=== PATIENT | male | born 1930 | race Caucasian/White ===

== ENCOUNTER 2016-10-09 03:01 | Inpatient (IN) | payer MEDICARE, BC ==
[2016-10-09] MEDS ORDERED: ASPIRIN 81 MG CHEW PO STA (03:16)
[2016-10-09] MEDS ORDERED: NITROGLYCERIN SL TABS 0.4 MG TAB SUBLINGUAL STA ×3 (03:16)
--- NOTE | 2016-10-09 03:17 | ED ---
General Adult HPI - General Chief complaint: Chest Pain Stated complaint: chest pains Time Seen by Provider: 10/09/16 03:13 Source: patient, family, RN notes reviewed Mode of arrival: ambulatory Limitations: no limitations - History of Present Illness Initial comments: Patient is a pleasant 86-year-old male presenting to the emergency department complaining of chest discomfort. Onset of symptoms was just an hour ago. Discomfort is severe. Discomfort feels like an ache. No radiation. Patient is unclear whether or not he short of breath. No nausea or sweating. Patient has had similar symptoms previously associated with cardiac problems. Patient does have a history of CABG. - Related Data Home Medications Medication Instructions Recorded Confirmed Nitroglycerin Sl Tabs [Nitrostat] 0.4 mg SL DIRECTED PRN 01/26/14 10/09/16 Ranitidine HCl [Zantac] 150 mg PO DAILY 01/26/14 10/09/16 Warfarin [Coumadin] 5 mg PO PC-SUPPER 01/26/14 10/09/16 ALPRAZolam [Xanax] 0.25 mg PO DIRECTED PRN 05/12/16 10/09/16 Aspirin [Adult Low Dose Aspirin EC] 81 mg PO DAILY 05/12/16 10/09/16 Escitalopram Oxalate [Lexapro] 10 mg PO DAILY 05/12/16 10/09/16 Isosorbide Mononitrate [Imdur] 120 mg PO PC-SUPPER 05/12/16 10/09/16 Losartan [Cozaar] 25 mg PO DAILY 05/12/16 10/09/16 Ranolazine [Ranexa] 1,000 mg PO BID 05/12/16 10/09/16 Previous Rx's Medication Instructions Recorded Atorvastatin [Lipitor] 40 mg PO HS #30 tab 10/14/14 Metoprolol Tartrate [Lopressor] 50 mg PO BID #60 tab 10/14/14 Allergies Allergy/AdvReac Type Severity Reaction Status Date / Time No Known Allergies Allergy Verified 10/09/16 03:05 Review of Systems ROS Statement: Those systems with pertinent positive or pertinent negative responses have been documented in the HPI. ROS Other: All systems not noted in ROS Statement are negative. Constitutional: Denies: fever Eyes: Denies: eye pain ENT: Denies: ear pain Respiratory: Denies: cough Cardiovascular: Reports: chest pain Endocrine: Denies: fatigue Gastrointestinal: Denies: abdominal pain Genitourinary: Denies: dysuria Musculoskeletal: Denies: back pain Skin: Denies: rash Neurological: Denies: weakness Past Medical History Past Medical History: Coronary Artery Disease (CAD), Chest Pain / Angina, Eye Disorder, Hyperlipidemia, Hypertension, Myocardial Infarction (NE) Additional Past Medical History / Comment(s): Macular Degeneration, rectal bleeding, Last Myocardial Infarction Date:: 1992 History of Any Multi-Drug Resistant Organisms: None Reported Past Surgical History: Cholecystectomy, Coronary Bypass/CABG, Heart Catheterization With Stent, Hernia Repair Additional Past Surgical History / Comment(s): kevin inguinal hernia, CABG 1992, 2 cardiac stents Past Anesthesia/Blood Transfusion Reactions: No Reported Reaction Date of Last Stent Placement:: 2003 Past Psychological History: Anxiety, Depression Smoking Status: Former smoker Past Alcohol Use History: Occasional Additional Past Alcohol Use History / Comment(s): quit smoking 40 yrs ago, smoked for 25 yrs- 1 PPD Past Drug Use History: None Reported - Past Family History Mother Family Medical History: No Reported History Additional Family Medical History / Comment(s): Passed at 93 Father Family Medical History: Myocardial Infarction ([place]) General Exam Limitations: no limitations General appearance: alert, in distress (Does appear uncomfortable) Head exam: Present: atraumatic Eye exam: Present: normal appearance, PERRL ENT exam: Present: normal oropharynx Neck exam: Present: normal inspection Respiratory exam: Present: normal lung sounds bilaterally. Absent: chest wall tenderness Cardiovascular Exam: Present: regular rate, normal rhythm Expanded Peripheral pulses: 2+: Radial (R), Radial (L), Dorsalis Pedis (R), Dorsalis Pedis (L) GI/Abdominal exam: Present: soft. Absent: tenderness Extremities exam: Present: normal inspection. Absent: pedal edema, calf tenderness Neurological exam: Present: alert Psychiatric exam: Present: normal affect, normal mood Skin exam: Absent: rash Course Vital Signs 10/09/16 10/09/16 10/09/16 03:03 03:13 03:29 Temperature 97.2 F L 97.2 F L Pulse Rate 92 93 78 Respiratory 20 16 18 Rate Blood Pressure 177/91 183/96 130/70 O2 Sat by Pulse 98 100 99 Oximetry 10/09/16 03:38 Temperature Pulse Rate 90 Respiratory 18 Rate Blood Pressure 109/65 O2 Sat by Pulse 96 Oximetry - Reevaluation(s) Reevaluation #1: 10/09/16 03:21 Case was discussed with cardiology, Dr. jarrett and EKG is being sent 10/09/16 03:45 Case again discussed with Dr. jarrett who is also concerned regarding disease. He does not feel patient needs ST elevation criteria. He recommends brain Dilaudid and heparin drip and vitamin K 5 mg subcu and will see in the morning. 10/09/16 03:45 10/09/16 04:04 Patient was reevaluated and discomfort has significant improved. Patient is resting comfortably. Patient rates discomfort now is 5/10. Patient and family are updated on results and plan. Dr. Jarrett was updated on further labs. 10/09/16 04:04 Case discussed in detail with Dr. Ashton, who will admit for hospital call. EKG Findings - EKG Comments: EKG Findings:: Sinus rhythm and 93. First-degree AV block. DE 344. QRS 144. QT 412. QTC 512. Left axis. Right bundle branch block. Left anterior fascicular block. Significant ST depression leads V1 through V6. ST elevation in lead aVR. Medical Decision Making - Lab Data Result diagrams: 10/09/16 03:13 10/09/16 03:13 Lab Results 10/09/16 10/09/16 10/09/16 Range/Units 03:13 03:13 03:13 WBC 5.5 (3.8-10.6) k/uL RBC 3.74 L (4.30-5.90) m/uL Hgb 12.6 L (13.0-17.5) gm/dL Hct 37.7 L (39.0-53.0) % MCV 100.8 H (80.0-100.0) fL MCH 33.7 (25.0-35.0) pg MCHC 33.4 (31.0-37.0) g/dL RDW 14.0 (11.5-15.5) % Plt Count 134 L (150-450) k/uL PT (9.0-12.0) sec INR (<1.1) APTT (22.0-30.0) sec Sodium 140 (137-145) mmol/L Potassium 4.1 (3.5-5.1) mmol/L Chloride 102 (98-107) mmol/L Carbon Dioxide 23 (22-30) mmol/L Anion Gap 15 mmol/L BUN 12 (9-20) mg/dL Creatinine 0.88 (0.66-1.25) mg/dL Est GFR (MDRD) Af Amer >60 (>60 ml/min/1.73 sqM) Est GFR (MDRD) Non-Af >60 (>60 ml/min/1.73 sqM) Glucose 124 H (74-99) mg/dL Calcium 9.1 (8.4-10.2) mg/dL Magnesium 1.8 (1.6-2.3) mg/dL Total Bilirubin 0.7 (0.2-1.3) mg/dL AST 31 (17-59) U/L ALT 35 (21-72) U/L Alkaline Phosphatase 108 (38-126) U/L Total Creatine Kinase 97 (55-170) U/L CK-MB (CK-2) 1.4 (0.0-2.4) ng/mL CK-MB (CK-2) Rel Index 1.4 Troponin I 0.064 H* (0.000-0.034) ng/mL Total Protein 7.8 (6.3-8.2) g/dL Albumin 4.2 (3.5-5.0) g/dL 10/09/16 Range/Units 03:13 WBC (3.8-10.6) k/uL RBC (4.30-5.90) m/uL Hgb (13.0-17.5) gm/dL Hct (39.0-53.0) % MCV (80.0-100.0) fL MCH (25.0-35.0) pg MCHC (31.0-37.0) g/dL RDW (11.5-15.5) % Plt Count (150-450) k/uL PT 24.8 H (9.0-12.0) sec INR 2.6 (<1.1) APTT 27.9 (22.0-30.0) sec Sodium (137-145) mmol/L Potassium (3.5-5.1) mmol/L Chloride (98-107) mmol/L Carbon Dioxide (22-30) mmol/L Anion Gap mmol/L BUN (9-20) mg/dL Creatinine (0.66-1.25) mg/dL Est GFR (MDRD) Af Amer (>60 ml/min/1.73 sqM) Est GFR (MDRD) Non-Af (>60 ml/min/1.73 sqM) Glucose (74-99) mg/dL Calcium (8.4-10.2) mg/dL Magnesium (1.6-2.3) mg/dL Total Bilirubin (0.2-1.3) mg/dL AST (17-59) U/L ALT (21-72) U/L Alkaline Phosphatase (38-126) U/L Total Creatine Kinase (55-170) U/L CK-MB (CK-2) (0.0-2.4) ng/mL CK-MB (CK-2) Rel Index Troponin I (0.000-0.034) ng/mL Total Protein (6.3-8.2) g/dL Albumin (3.5-5.0) g/dL Critical Care Time Critical Care Time: Yes Total Critical Care Time: 34 Disposition Clinical Impression: NSTEMI (non-ST elevated myocardial infarction) Disposition: ADMITTED IP TO THIS [facility] Condition: Serious
[2016-10-09 03:31] LABS: Aty Lym Flag Marked; CH 33.9; CHCM 33.8; HCT 37.7 % (39.0-53.0); HDW 2.83; HGB 12.6 gm/dL (13.0-17.5); MCH 33.7 pg (25.0-35.0); MCHC 33.4 g/dL (31.0-37.0); MCV 100.8 fL (80.0-100.0); MPO Flag Slight; Macrocytosis Slight; Mean Platelet Volume 7.5; RBC 3.74 m/uL (4.30-5.90); WBC 5.5 k/uL (3.8-10.6); WBC (Perox) 5.29
[2016-10-09 03:35] LABS: INR 2.6 (<1.1); Partial Thromboplastin Time 27.9 sec (22.0-30.0); Prothrombin Time 24.8 sec (9.0-12.0)
[2016-10-09 03:39] LABS: ALT 35 U/L (21-72); AST 31 U/L (17-59); Alkaline Phosphatase 108 U/L (38-126); Anion Gap 15 mmol/L; Blood Urea Nitrogen 12 mg/dL (9-20); Calcium 9.1 mg/dL (8.4-10.2); Carbon Dioxide 23 mmol/L (22-30); Chloride 102 mmol/L (98-107); Glucose 124 mg/dL (74-99); Magnesium 1.8 mg/dL (1.6-2.3); Non-African American GFR(MDRD) >60 (>60 ml/min/1.73 sqM); Potassium 4.1 mmol/L (3.5-5.1); Sodium 140 mmol/L (137-145); Total Bilirubin 0.7 mg/dL (0.2-1.3); Total Protein 7.8 g/dL (6.3-8.2)
[2016-10-09] MEDS ORDERED: HEPARIN SODIUM,PORCINE 5,000 UNIT/ML 1 ML VIAL IV PRN (03:44)
[2016-10-09] MEDS ORDERED: HYDROmorphone 1 MG/ML 1 ML SYRINGE IVP STA (03:44)
--- NOTE | 2016-10-09 03:44 | XR ---
EXAMINATION TYPE: XR chest 1V portable DATE OF EXAM: 10/09/2016 3:28 AM COMPARISON: 10/10/2014 HISTORY: Chest pain, severe substernal chest pain history of CABG PR CAD. TECHNIQUE: Single frontal view of the chest is obtained. Portable upright study. FINDINGS: There is elevated left hemidiaphragm of chronic nature with eventration changes. Mild right basilar lung infiltrates and atelectasis is suggested. Mild atelectasis is also noted in t he left lung base. There is mild cardiomegaly. Postsurgical changes of sternotomy are present. The osseous structures are intact. IMPRESSION: 1. Mild right basilar lung infiltrates and atelectasis. 2. Mild atelectasis in the left lung base. 3. Postsurgical changes of sternotomy.
[2016-10-09] MEDS ORDERED: HEPARIN SODIUM,PORCINE/D5W PMX 25,000 UNIT in DEXTROSE/WATER 1 500ML.BAG IV SCH (03:45)
[2016-10-09] MEDS ORDERED: PHYTONADIONE 10 MG/ML 1 ML AMP MISCELLANE STA (03:57)
[2016-10-09 04:01] LABS: Creatine Kinase MB 1.4 ng/mL (0.0-2.4)
[2016-10-09 04:02] LABS: Troponin I 0.064 ng/mL (0.000-0.034)
[2016-10-09] MEDS ORDERED: PHYTONADIONE 2 MG in SODIUM CHLORIDE 0.9% 50 ML IVPB STA (04:08)
[2016-10-09 04:13] LABS: Add Differential Manual Differential
[2016-10-09 04:15] LABS: Nucleated Red Blood Cells 0 /100 WBC (0-0)
[2016-10-09 04:16] LABS: Manual Review Performed; Total Cells Counted 100
[2016-10-09 05:33] VITALS: BMI 27.6
[2016-10-09] MEDS: NITROGLYCERIN OINT 1 INCH/GM PACKET TOPICAL SCH ×3 (06:23→18:22)
[2016-10-09] MEDS: NITROGLYCERIN SL TABS 0.4 MG TAB SUBLINGUAL PRN ×3 (08:10→08:21)
[2016-10-09 09:16] LABS: Partial Thromboplastin Time 38.1 sec (22.0-30.0); Prothrombin Time 19.5 sec (9.0-12.0)
[2016-10-09] MEDS: FAMOTIDINE 20 MG TAB PO SCH (09:28)
[2016-10-09] MEDS: RANOLAZINE 500 MG TAB.ER.12H PO SCH ×2 (09:28→21:51)
[2016-10-09] MEDS: LOSARTAN 25 MG TAB PO SCH (09:28)
[2016-10-09] MEDS: METOPROLOL TARTRATE 50 MG TAB PO SCH ×2 (09:28→21:50)
[2016-10-09] MEDS ORDERED: SODIUM CHLORIDE 0.9% 1,000 ML IV SCH (09:30)
[2016-10-09] MEDS ORDERED: LIDOCAINE 2% INJ 20 MG/ML (20 ML MDV) ONE (09:34)
[2016-10-09] MEDS ORDERED: MIDAZOLAM 2 MG/2 ML VIAL ONE (09:34)
[2016-10-09] MEDS ORDERED: ASPIRIN 325 MG TAB ONE (09:49)
[2016-10-09 09:54] LABS: Creatine Kinase MB 7.4 ng/mL (0.0-2.4); Troponin I 1.21 ng/mL (0.000-0.034)
--- NOTE | 2016-10-09 09:55 | CONS ---
DATE OF CONSULTATION: Mr. Lebron is an 86-year-old gentleman who is seen for the cardiac evaluation. The patient presented to the emergency room early this morning with moderate to severe chest discomfort. Patient gives the history that he was at a alliance party last night and he had a couple of beers and shots and then he woke up in the middle of the night with chest discomfort which was diffuse across the chest, moderate to severe, did not have any significant nausea or vomiting or sweating. Patient's EKG showed diffuse ST segment depression in the anterolateral leads with some ST elevation in aVR. This patient has a complex coronary artery disease with a prior history of coronary artery bypass surgery several years ago. Subsequently, patient had multiple stents. Patient had a stent to the left main. The last cardiac catheterization was done here in 2014. At that time patient underwent stent to the diagonal branch. The graft to the circumflex coronary artery had some disease, but was advised medical treatment. The patient had a second opinion at [facility], had a repeat cardiac catheterization done 6 to 8 months ago and was advised medical treatment. The patient had been doing fairly well with only occasional angina with activities. The patient is otherwise physically and functionally independent. Patient has been on Coumadin because of possible atrial fibrillation in the past. Patient's home medications include Zantac, Coumadin, Cozaar, Ranexa, Lipitor and Lopressor. Past medical history includes history of coronary artery bypass surgery, hypertension, hyperlipidemia, myocardial infarction, multiple stents, cholecystectomy hernia repair, macular degeneration, history of rectal bleeding, bilateral inguinal hernia repair. Smoking status: Patient is a former smoker. Physical examination at present reveals an 86-year-old gentleman who at present is having mild chest discomfort. Blood pressure is 130/70 mmHg. HEENT examination is negative. Neck is supple. There is no increase in jugular venous pressure. Both the carotid pulses are felt. There is no bruit. Chest is symmetrical. HEART: The PMI is not felt. First and second heart sounds are normal. Lungs are clinically clear to auscultation and percussion. Abdomen is soft. Liver and spleen are not enlarged. Bowel sounds are heard. EXTREMITIES: Peripheral pulsations are not well felt. Both femoral pulses are felt. EKG shows diffuse right bundle branch block with diffuse ST segment depression in the anterolateral leads. The patient's hemoglobin is 12.6. INR was 2.6. Creatinine is 0.88. Initial troponin is 0.06. FINAL IMPRESSION: This patient has presented with non-Q-wave myocardial infarction with diffuse ST segment depression. Patient has a history of coronary artery disease with a prior history of coronary artery surgery and multiple bypass stents. Patient again had recurrence of the pain after admission in the hospital. In view of that, the patient is considered a very high risk. I discussed in length in detail with the patient and the friend who is present in the room, explained the benefits and risks. He wants to proceed with it. The risk of bleeding was explained to the patient. Patient has received vitamin K. We will recheck the INR, hydrate the patient and take him to the cardiac labor/excavator for whether any kind of intervention can be done or not.
[2016-10-09] MEDS ORDERED: ASPIRIN 325 MG TAB PO ONE (09:56)
[2016-10-09] MEDS ORDERED: fentaNYL (PF) 50 MCG/ML 2 ML AMP ONE (10:21)
[2016-10-09] MEDS ORDERED: MIDAZOLAM 2 MG/2 ML VIAL IVP ONE (10:24)
[2016-10-09] MEDS ORDERED: IV FLUID CONTINUATION 350 ML IV ONE (10:24)
[2016-10-09] MEDS ORDERED: fentaNYL (PF) 50 MCG/ML 2 ML AMP IV ONE (10:24)
[2016-10-09] MEDS ORDERED: LIDOCAINE 2% INJ 20 MG/ML SQ ONE (10:25)
[2016-10-09] MEDS ORDERED: IOHEXOL 350 MG/ML 100 ML BOTTLE INJ ONE (10:56)
[2016-10-09] MEDS ORDERED: RX INFO: IV CONTRAST WAS GIVEN 1 EACH MISC MISCELLANE PRN (11:01)
[2016-10-09] MEDS ORDERED: CLOPIDOGREL 75 MG TAB PO STA (11:05)
[2016-10-09] MEDS: SODIUM CHLORIDE 0.9% 1,000 ML IV SCH (11:43)
[2016-10-09] MEDS ORDERED: Magnesium Replacement Protocol 1 EACH MISC MISCELLANE PRN (11:48)
[2016-10-09] MEDS: MAGNESIUM SULFATE-D5W PMX 1 GM in DEXTROSE/WATER 1 100ML.BAG IVPB SCH ×2 (12:28→13:43)
--- NOTE | 2016-10-09 12:43 | CC ---
DATE OF SERVICE: Mr. Lebron is an 86-year-old gentleman who was admitted to the hospital with severe chest pain. Patient had a diffuse ST segment depression. Troponin was elevated in 0.06 and 1.2. In view of the patient's pain and abnormal EKG, patient was advised cardiac catheterization after explaining all the risks and benefits. This patient has a prior history of a stent to the left main. He underwent angioplasty and stenting of the second diagonal branch in 2014. The graft to the right coronary artery was occluded. LAD was 100%, OLMOS graft to the LAD was patent. PROCEDURE: The right groin was prepped and draped in the usual manner and the skin was infiltrated with 2% Xylocaine. The right femoral artery was entered using Seldinger technique and #6 Danish sheath was placed in. Selective coronary angiography was then performed in multiple projections. Selective injection of the vein graft to the RCA and circumflex was made. The OLMOS was injected sub-selectively because of the tortuous subclavian artery. HEMODYNAMICS: Left ventricular end-diastolic pressure is 24 mmHg prior to angiography. No gradient is noted across the aortic valve. SELECTIVE CORONARY ANGIOGRAPHY: Left main coronary artery is patent and a stent is patent. The LAD is totally occluded in its proximal portion. The diagonal branch, which was angioplastied is totally occluded with very slow sluggish flow noted antegrade. The circumflex coronary artery is totally occluded. The subselective injection of the OLMOS graft showed the OLMOS is patent. Right coronary artery is totally occluded. Saphenous vein graft to the right coronary artery is occluded. Saphenous vein graft to the circumflex coronary artery is diffusely diseased, is old, and distally at the site of the anastomosis. There 70% stenosis beyond the anastomosis. The obtuse marginal branch is a very small caliber blood vessel. RECOMMENDATIONS: The cardiac cath findings were reviewed with Dr. Odilia Horn. In view of the above findings, we would recommend to continue the patient on maximum medical therapy. Overall patient's prognosis is guarded.
[2016-10-09 16:44] LABS: Creatine Kinase MB 7.9 ng/mL (0.0-2.4); Troponin I 2.08 ng/mL (0.000-0.034)
[2016-10-09] MEDS ORDERED: ISOSORBIDE MONONITRATE ER 60 MG TAB.ER.24H PO SCH (18:30)
[2016-10-09] MEDS: ATORVASTATIN 40 MG TAB PO SCH (21:50)
[2016-10-09] MEDS: ALPRAZolam 0.25 MG TAB PO PRN (22:33)
[2016-10-10] MEDS: NITROGLYCERIN OINT 1 INCH/GM PACKET TOPICAL SCH ×2 (00:14→06:15)
[2016-10-10] MEDS: SODIUM CHLORIDE 0.9% 1,000 ML IV SCH ×2 (03:14→15:50)
[2016-10-10 04:50] LABS: Aty Lym Flag Marked; CH 33.7; CHCM 32.4; HCT 36.7 % (39.0-53.0); HDW 2.64; HGB 11.8 gm/dL (13.0-17.5); MCH 33.4 pg (25.0-35.0); MCV 104.4 fL (80.0-100.0); Macrocytosis Slight; Mean Platelet Volume 7.5; RBC 3.52 m/uL (4.30-5.90); RDW 14.1 % (11.5-15.5); WBC 6.7 k/uL (3.8-10.6); WBC (Perox) 6.76
[2016-10-10 05:00] LABS: ALT 34 U/L (21-72); AST 34 U/L (17-59); Alkaline Phosphatase 80 U/L (38-126); Anion Gap 9 mmol/L; Blood Urea Nitrogen 14 mg/dL (9-20); Calcium 8.2 mg/dL (8.4-10.2); Carbon Dioxide 21 mmol/L (22-30); Chloride 107 mmol/L (98-107); Cholesterol 106 mg/dL (<200); Glucose 132 mg/dL (74-99); HDL Cholesterol 57 mg/dL (40-60); Non-African American GFR(MDRD) >60 (>60 ml/min/1.73 sqM); Phosphorous 2.8 mg/dL (2.5-4.5); Potassium 4.4 mmol/L (3.5-5.1); Sodium 137 mmol/L (137-145); Total Bilirubin 0.8 mg/dL (0.2-1.3); Triglycerides 82 mg/dL (<150)
[2016-10-10 05:08] LABS: INR 1.3 (<1.1); Prothrombin Time 12.4 sec (9.0-12.0)
[2016-10-10 05:17] LABS: Add Differential Manual Differential
[2016-10-10 05:19] LABS: Nucleated Red Blood Cells 0 /100 WBC (0-0); Total Cells Counted 100
[2016-10-10 05:20] LABS: Manual Review Performed
--- NOTE | 2016-10-10 08:01 | HP ---
DATE OF ADMISSION: Chief complaint is chest pain. HISTORY OF ILLNESS: Mr. Lebron is an 86-year-old male with a known history of coronary artery disease and stent placement and history of ID and coronary artery bypass graft in 1992, came to the ER with complaints of chest pain, started this morning at around 12:30 a.m. Patient has midsternal chest pain, pain across the anterior chest wall, no radiation of the pain and associated with mild short of breath. No associated nausea or vomiting, denied any diaphoresis. Patient came to the hospital for further evaluation. Patient had similar episodes previously. Apparently, patient went to a dinner libertarian last night and had a few shots of alcohol. He came home and after he slept, he woke up with this pain. However, denied any recent illnesses. No sick contacts at home. No other issues going on recently. REVIEW OF SYSTEMS: CONSTITUTIONAL: No fever. No chills. No weakness, malaise. RESPIRATORY: No cough or sputum production. CARDIOVASCULAR: No chest pain or short of breath. ABDOMEN: No nausea, vomiting, abdominal pain. GENITOURINARY: Negative. ENDOCRINE: Negative. PSYCHIATRY: Negative. SKIN: Negative. All other 14-point review of systems negative except as above. PAST MEDICAL HISTORY: Coronary artery disease with history of stent placement, chest pain/angina, macular degeneration, rectal bleeding, hypertension, hyperlipidemia, history of ID. PAST SURGICAL HISTORY: Cholecystectomy, coronary artery bypass graft, cardiac catheterization, stent placement, hernia repair, bilateral inguinal hernia repair, and bypass graft in 1992 and followed by 2 stents to the graft vessels. PSYCHOSOCIAL HISTORY: Anxiety and depression. SOCIAL HISTORY: Patient is a former smoker; quit smoking 40 years ago, smoker for 25 years 1 pack per day. Occasional alcohol use. Denied any drugs or IVDU. FAMILY HISTORY: Mother had no reported history, at 93. Father had a history of ID. ALLERGIES: No known drug allergies. Home medications include: 1. Nitrostat. 2. Zantac. 3. Warfarin. 4. Xanax. 5. Aspirin. 6. Lexapro. 7. Imdur. 8. Losartan. 9. Ranexa. 10. Atorvastatin. 11. Metoprolol. PHYSICAL EXAMINATION: An 86-year-old male lying in the bed comfortably, awake, alert, oriented, x3. Patient in no apparent distress. VITALS: Blood pressure is 119/53, pulse is 59, respirations 12, temperature afebrile, pulse ox 95% on 2 L nasal cannula. HEENT: Atraumatic, normocephalic. Neck is supple. No JVD. CVS EXAM: S1, S2 heard. No murmurs, no gallop. LUNGS: Bilateral air entry is present. No wheezing. No crackles. Abdomen is soft, nontender, bowel sounds are present. SIDING STAPLER: Awake, alert, oriented x3. EXTREMITIES: Does have trace edema. Pulses palpable bilaterally. No clubbing or cyanosis. PSYCHIATRIC: Cooperative. LABORATORY DATA: WBC 5.5, hemoglobin 12.6, platelets 138, MCV is 100.8, INR 2.6. Sodium 140, potassium 4.1, chloride 102, bicarb is 23, BUN 12, creatinine 0.88. Blood sugar is 124, troponin 0.064, 1.210 and 2.08. EKG: Sinus rhythm with first degree AV block and right bundle branch block. CHEST X-RAY: No acute process. IMPRESSION: 1. Non-ST elevated myocardial infarction. 2. History of paroxysmal atrial fibrillation with anticoagulation with Coumadin. 3. Chest pain/angina. 4. Macular degeneration. 5. Hypertension. 6. Hyperlipidemia. 7. History of myocardial infarction. 8. History of coronary artery disease, status post coronary artery bypass graft in 1992 followed by stent placement x2. PLAN: Patient was seen by Cardiology and patient underwent cardiac catheterization today which showed left main coronary artery disease is patent and stent is patent. LAD totally occluded in its proximal portion and saphenous vein graft to the right coronary artery is occluded, saphenous vein graft to the left circumflex artery is diffusely diseased and in view of above findings, Cardiology recommended continue maximum medical therapy. Overall prognosis is guarded. Otherwise, the patient is currently chest pain free now. Will continue with the monitoring and follow up closely. Will check INR level. MTDD
[2016-10-10] MEDS ORDERED: ASPIRIN 325 MG TAB PO SCH (09:00)
[2016-10-10] MEDS: RANOLAZINE 500 MG TAB.ER.12H PO SCH ×2 (09:47→22:08)
[2016-10-10] MEDS: ALPRAZolam 0.25 MG TAB PO PRN ×2 (09:47→22:13)
[2016-10-10] MEDS: FAMOTIDINE 20 MG TAB PO SCH (09:48)
[2016-10-10] MEDS: LOSARTAN 25 MG TAB PO SCH (09:48)
[2016-10-10] MEDS: METOPROLOL TARTRATE 50 MG TAB PO SCH ×2 (09:48→22:08)
[2016-10-10] MEDS: CLOPIDOGREL 75 MG TAB PO SCH (09:48)
--- NOTE | 2016-10-10 10:37 | CDI ---
In responding to this query, please exercise your independent professional judgment. The [facility] Coding Staff and Clinical Documentation Specialists appreciate your assistance in clarifying documentation, maintaining compliance with coding guidelines, accurately documenting patients condition and capturing severity of illness. The fact that a question is asked does not imply that any particular answer is desired or expected. Communication forms are a method of clarifying documentation and are not made part of the Legal Health Record. Thank you in advance for your clarification. Last Revision, June 2015 Triny Donaldson [address] [place] [address] Documentation Clarification Form Date: 10/10/2016 10:28:00 AM From: Gael Denson, RN, BSN, CDI Admit Date: 10/09/2016 4:05:00 AM Patient Name: Chidi Lebron Visit Number: [id number] Dr. aSntiago: "Atrial fibrillation" is documented in the H&P. History/Risk Factors: 86 yo male with history of CAD w/stent placement, HTN, hyperlipidemia, SD, CABG presents with c/o chest discomfort. Clinical Indicators: Pt presents on Coumadin with INR of 2.6 on admission EKG: SR w/1st degree ABB, RBBB, left anterior fascicular block, significant ST depression in leads V1-V6, ST elevation in lead aVR Treatment: Vit K- given in ED Consults: Cardiology In your professional opinion, can you please clarify the type of atrial fibrillation, if known? Chronic/Permanent Paroxysmal Persistent Other, please specify Unable to determine Please document in your progress notes and discharge summary in order to capture severity of illness and risk of mortality. Include clinical findings that support your diagnosis. FYI: Press F11 to launch patient chart Place X here if this finding has no clinical significance, is not applicable or if you are not able to provide any additional documentation. DAVIDSON
[2016-10-10] MEDS: ASPIRIN 81 MG CHEW PO SCH (10:51)
--- NOTE | 2016-10-10 14:45 | PN ---
Mr. Lebron is an 86-year-old male with known history of coronary artery disease, status post coronary artery bypass grafting, who presented with non-ST segment elevation myocardial infarction, underwent cardiac catheterization by Dr. Daniel Jarrett and a decision was made to maximize medical therapy. Patient was not a candidate for revascularization. He is doing well this morning. He is denying any symptoms of chest pain. He denies any dizziness, palpitation. He denies any nausea. Hemodynamically, he is able. He continues to be at this time on: 1. Aspirin 320 mg daily. 2. Lipitor 40 mg daily. 3. Plavix 75 mg daily. 4. Losartan 25 mg daily. 5. Metoprolol 50 mg twice a day. 6. Nitro paste. 7. Ranexa 1000 mg twice a day. 8. Coumadin. PHYSICAL EXAMINATION: Blood pressure 106/50 with a heart in the 60s. LUNGS: Clear. HEART: S1, S2, no S3, with systolic murmur. ABDOMEN: Soft, nontender. RIGHT GROIN: No evidence of hematoma. IMPRESSION: 1. Non- ST segment elevation in elevation myocardial infarction maximizing medical therapy has been recommended. 2. Status post coronary artery bypass grafting. 3. Hyperlipidemia. RECOMMENDATIONS: From the cardiac standpoint, we will continue present therapy. He will be transferred to the telemetry floor. His level of activity will be increased. Depending on his progress, further recommendations will be made.
[2016-10-10] MEDS: ISOSORBIDE MONONITRATE ER 60 MG TAB.ER.24H PO SCH (15:48)
[2016-10-10 17:25] VITALS: RESP 18
[2016-10-10] MEDS ORDERED: WARFARIN 5 MG TAB PO SCH (18:00)
[2016-10-10] MEDS: ATORVASTATIN 40 MG TAB PO SCH (22:08)
[2016-10-11 06:40] LABS: Aty Lym Flag Marked; CH 33.6; CHCM 32.2; HCT 32.4 % (39.0-53.0); HDW 2.67; HGB 10.6 gm/dL (13.0-17.5); MCH 34.1 pg (25.0-35.0); MCHC 32.6 g/dL (31.0-37.0); MCV 104.7 fL (80.0-100.0); MPO Flag Slight; Macrocytosis Slight; Mean Platelet Volume 7.1; RBC 3.09 m/uL (4.30-5.90); RDW 14.1 % (11.5-15.5); WBC 5.7 k/uL (3.8-10.6); WBC (Perox) 6.05
[2016-10-11 06:51] LABS: INR 1.2 (<1.1); Prothrombin Time 12.3 sec (9.0-12.0)
[2016-10-11 06:55] LABS: Anion Gap 7 mmol/L; Blood Urea Nitrogen 11 mg/dL (9-20); Calcium 7.8 mg/dL (8.4-10.2); Carbon Dioxide 22 mmol/L (22-30); Chloride 106 mmol/L (98-107); Glucose 122 mg/dL (74-99); Non-African American GFR(MDRD) >60 (>60 ml/min/1.73 sqM); Potassium 4.1 mmol/L (3.5-5.1); Sodium 135 mmol/L (137-145)
[2016-10-11 07:21] LABS: Add Differential Manual Differential
[2016-10-11 07:23] LABS: Manual Review Performed; Nucleated Red Blood Cells 0 /100 WBC (0-0); Total Cells Counted 100
[2016-10-11 07:24] LABS: Polychromasia Present
[2016-10-11] MEDS: NITROGLYCERIN OINT 1 INCH/GM PACKET TOPICAL SCH (08:07)
[2016-10-11] MEDS: CLOPIDOGREL 75 MG TAB PO SCH (08:14)
[2016-10-11] MEDS: RANOLAZINE 500 MG TAB.ER.12H PO SCH (08:14)
[2016-10-11] MEDS: ISOSORBIDE MONONITRATE ER 60 MG TAB.ER.24H PO SCH (08:14)
[2016-10-11] MEDS: FAMOTIDINE 20 MG TAB PO SCH (08:15)
[2016-10-11] MEDS: METOPROLOL TARTRATE 50 MG TAB PO SCH (08:15)
[2016-10-11] MEDS: ASPIRIN 81 MG CHEW PO SCH (08:15)
[2016-10-11] MEDS: LOSARTAN 25 MG TAB PO SCH (08:15)
[2016-10-11] MEDS: SODIUM CHLORIDE 0.9% 1,000 ML IV SCH (08:17)
--- NOTE | 2016-10-11 11:30 | PN ---
DATE OF SERVICE: 10/10/2016 INTERVAL HISTORY: Mr. Lebron is an 86-year-old male with known history of coronary artery disease and bypass graft, and also history of stent placement, came to the ER with complaints of chest pain and elevated troponin level. Patient underwent cardiac catheterization. Management of medical therapy has been recommended by Cardiology. Currently, patient is chest pain free and is being transferred to general medical floor. No acute overnight issues. No fever. No chills. REVIEW OF SYSTEMS: CONSTITUTIONAL: No fever. No chills. RESPIRATORY: No cough or sputum production. CARDIOVASCULAR: No chest pain or shortness of breath. ABDOMEN: No nausea, vomiting or abdominal pain. GENITOURINARY: No dysuria. ENDOCRINE: Negative. PSYCHIATRIC: Negative. SKIN: Negative. MUSCULOSKELETAL: Negative. All other 14-point review of systems negative except as above. CURRENT MEDICATIONS: Reviewed. PHYSICAL EXAMINATION: An 86-year-old male lying in bed comfortably, awake, alert, oriented x3. He appears to be in no apparent distress. VITALS: Blood pressure is 106/53, pulse is 62, respirations 14, temperature afebrile, pulse ox 94% on room air. HEENT: Atraumatic, normocephalic. Neck is supple. No JVD. CVS EXAM: S1, S2 heard. No murmurs, no gallop, no rub. LUNGS: Bilateral air entry is present. No wheezing. No crackles. Nonlabored breathing. ABDOMEN: Soft, nontender. Bowel sounds are present. RESIDENTIAL CARE OFFICER: Awake, alert, oriented x3. No focal deficit. EXTREMITIES: ( ) Pulses palpable bilaterally. No clubbing or cyanosis. PSYCHIATRIC: Cooperative. LABORATORY DATA: WBC 6.7, hemoglobin 11.8, MCV 104.4, platelets 119. INR 1.3. Sodium 137, potassium 4.4, chloride 107, bicarb is 21, BUN 14, creatinine 0.8. Albumin 3.1. LDL is 33. IMPRESSION: 1. Acute non-ST elevated myocardial infarction, status post cardiac catheterization and maximum medical management recommended by Cardiology. 2. Paroxysmal atrial fibrillation on anticoagulation with Coumadin. 3. Subtherapeutic INR level, started back on Coumadin dosing. 4. Chest pain/angina. 5. Macrocytic anemia. 6. Macular degeneration. 7. Hypertension. 8. Hyperlipidemia. Current LDL is 33. 9. History of myocardial infarction. 10. History of coronary artery disease, status post coronary artery bypass graft in 1992 followed by stent placement x2. DISCUSSION AND PLAN: The patient will be continued on the current management. Follow up INR level. The patient will be transferred to Telemetry unit and continued the current management and further recommendations based on clinical course. Anticipate discharge tomorrow with more clinical improvement.
[2016-10-11 11:35] VITALS: BP 98/56; PULSE 60; TEMP 97.6
--- NOTE | 2016-10-11 13:13 | P.PN ---
Subjective Principal diagnosis: Non-STEMI This is an 86-year-old gentleman who presented to the emergency room with non- STEMI. He was taken to the cardiac catheterization lab by Dr. VC Jarrett which revealed a patent stent in the left main, LAD is totally occluded in its proximal portion. Diagonal branch which was previously angioplastied is totally occluded with very sluggish flow. Circumflex artery totally occluded. OLMOS to the LAD patent RCA totally occluded, saphenous vein graft to the RCA occluded. Saphenous vein graft to the circumflex artery diffusely diseased which appears to be old. There is a 70% stenosis beyond the anastomosis. Findings were reviewed with Dr. Cynthia Horn in the decision was made to maximize the patient's medical therapy. Examined this morning, denies any further chest discomfort or difficulty in breathing. His complained of some numbness in his left hand, good pulse in that hand, excellent strength. Good capillary refill. Patient has been up ambulating in the hallway without any difficulty. Blood pressure 120/57 with a heart rate in the 70s. Hemoglobin 10.6, INR 1.2. BUN 11 and creatinine 0.8. Objective - Vital Signs Vital signs: Vital Signs Temp 97.6 F 10/11/16 11:29 Pulse 60 10/11/16 11:29 Resp 18 10/11/16 11:29 BP 98/56 10/11/16 11:29 Pulse Ox 98 10/11/16 11:29 Intake & Output 10/10/16 10/11/16 10/11/16 18:59 06:59 18:59 Intake Total 300 Output Total 300 600 700 Balance 0 -600 -700 Weight 93.6 kg Intake: IV 300 Sodium Chloride 0.9% 1, 300 000 ml @ 75 mls/hr IV . [id number] [facility] Rx#:[id number] Output: Urine 300 600 700 Other: # Voids 1 1 - Exam PHYSICAL EXAMINATION: HEENT: Head is atraumatic, normocephalic. Pupils equal, round. Neck is supple. There is no elevated jugular venous pressure. HEART EXAMINATION: Heart S1, S2 normal. No murmur or gallop heard. CHEST EXAMINATION: Lungs are clear to auscultation and precussion. No chest wall tenderness is noted on palpation or with deep breathing. ABDOMEN: Soft, nontender. Bowel sounds are heard. No organomegaly noted. EXTREMITIES: 2+ peripheral pulses with no evidence of peripheral edema and no calf tenderness noted. NEUROLOGIC patient is awake, alert and oriented -3. . - Labs CBC & Chem 7: 10/11/16 06:12 10/11/16 06:12 Labs: Abnormal Lab Results - Last 24 Hours (Table) 10/11/16 10/11/16 10/11/16 Range/Units 06:12 06:12 06:12 RBC 3.09 L (4.30-5.90) m/uL Hgb 10.6 L (13.0-17.5) gm/dL Hct 32.4 L (39.0-53.0) % MCV 104.7 H (80.0-100.0) fL Plt Count 109 L (150-450) k/uL Lymphocytes # (Manual) 0.7 L (1.0-4.8) k/uL PT 12.3 H (9.0-12.0) sec Sodium 135 L (137-145) mmol/L Glucose 122 H (74-99) mg/dL Calcium 7.8 L (8.4-10.2) mg/dL Assessment and Plan (1) NSTEMI (non-ST elevated myocardial infarction) Status: Acute (2) AF (paroxysmal atrial fibrillation) Status: Acute (3) CAD (coronary artery disease) Status: Acute (4) HTN (hypertension) Status: Acute (5) Hx of CABG Status: Acute (6) Hyperlipemia Status: Acute Plan: From cardiology's perspective, patient may be able to be discharged home today on current medications. PT/INR on Monday. Follow-up appointment with Dr. Yates in the office in 2 weeks. DNP note has been reviewed, I agree with a documented findings and plan of care. Patient was seen and examined.
--- NOTE | 2016-12-05 06:02 | DS ---
DATE OF ADMISSION: 10/09/2016 DATE OF DISCHARGE: 10/11/2016 DISCHARGE DIAGNOSES: 1. Acute non-ST elevated myocardial infarction, status post cardiac catheterization and maximal medical management has been recommended by Cardiology. 2. Paroxysmal atrial fibrillation, on anticoagulation with Coumadin.. 3. Subtherapeutic INR level, started back on Coumadin dosing. 4. Chest pain/angina. 5. Macrocytic anemia. 6. Macular degeneration. 7. Hypertension. 8. Hyperlipidemia with LDL currently at 33. 9. History of myocardial infarction. 10. History of coronary artery disease, status post coronary artery bypass graft in 1992 followed by stent placement x2. HOSPITAL COURSE: Mr. Lebron is an 86-year-old male with known history of significant coronary artery disease and coronary artery bypass graft and stent placement history after that came to the ER with complaints of chest pain and found to have elevated troponin limits. The patient was found to have non-ST elevated DE and the patient was taken to cardiac catheterization. Upon reviewing the cath report, Cardiology has decided to go for maximum medical management at this time. Otherwise, patient is chest pain free, currently walking in the hallway. Vital s stable Discharge Physical exam done Labs reviewed Discharge medications include: 1. Nitrostat 0.4 mg sublingual q.5 minutes p.r.n. for chest pain. 2. Ranitidine 150 mg p.o. daily. 3. Warfarin 5 mg p.o. a.c. supper. 4. Atorvastatin 40 mg p.o. at bedtime. 5. Metoprolol 50 mg p.o. b.i.d. 6. Xanax 0.25 mg p.o. q.h.s. p.r.n. for anxiety. 7. Aspirin 81 mg p.o. daily. 8. Lexapro 10 mg p.o. daily. 9. Cozaar 25 mg p.o. daily. 10. Ranexa 1000 mg p.o. b.i.d. 11. Imdur 60 mg p.o. daily. 12. Plavix 75 mg p.o. daily. Patient will be discharged home in stable condition. Activity as tolerated. Home with self-care. Heart healthy diet. Follow with Dr. Macario Cast on 10/17/2016. Follow with Dr. Yates. [facility]
--- NOTE | 2016-12-05 06:05 | DS ---
DATE OF ADMISSION: 10/09/2016 DATE OF DISCHARGE: 10/11/2016 ADDENDUM: Discharge medications include: 1. Nitrostat 0.4 mg sublingual q.5 minutes p.r.n. for chest pain. 2. Ranitidine 150 mg p.o. daily. 3. Warfarin 5 mg p.o. a.c. supper. 4. Atorvastatin 40 mg p.o. at bedtime. 5. Metoprolol 50 mg p.o. b.i.d. 6. Xanax 0.25 mg p.o. q.h.s. p.r.n. for anxiety. 7. Aspirin 81 mg p.o. daily. 8. Lexapro 10 mg p.o. daily. 9. Cozaar 25 mg p.o. daily. 10. Ranexa 1000 mg p.o. b.i.d. 11. Imdur 60 mg p.o. daily. 12. Plavix 75 mg p.o. daily. Patient will be discharged home in stable condition. Activity as tolerated. Home with self-care. Heart healthy diet. Follow with Dr. Macario Cast on 10/17/2016. Follow with Dr. Yates.
== END 2016-10-11 16:37 | disposition home or self-care (01) | DRG 281 ==
LOC: EC 03:01 → 6SEL 04:05 → 6ICU 11:09 → 6SEL 10-10 14:09
PROVIDERS: ADMIT Family Medicine; ATTEND Family Medicine
PROC: B2111ZZ Fluoroscopy of Multiple Coronary Arteries using Low Osmolar Contrast (ICD-10-PCS; 2016-10-09)
PROC: B2131ZZ Fluoroscopy of Multiple Coronary Artery Bypass Grafts using Low Osmolar Contrast (ICD-10-PCS; 2016-10-09)
PROC: B2181ZZ Fluoroscopy of Left Internal Mammary Bypass Graft using Low Osmolar Contrast (ICD-10-PCS; 2016-10-09)
PROC: 4A023N7 Measurement of Cardiac Sampling and Pressure, Left Heart, Percutaneous Approach (ICD-10-PCS; principal; 2016-10-09 10:00)
DX: I21.4 Non-ST elevation (NSTEMI) myocardial infarction (principal); I25.810 Atherosclerosis of coronary artery bypass graft(s) without angina pectoris; T82.858A Stenosis of other vascular prosthetic devices, implants and grafts, initial encounter; I48.0 Paroxysmal atrial fibrillation; I45.10 Unspecified right bundle-branch block; I10 Essential (primary) hypertension; F32.9 Major depressive disorder, single episode, unspecified; E78.5 Hyperlipidemia, unspecified; H35.30 Unspecified macular degeneration; I25.2 Old myocardial infarction; D53.9 Nutritional anemia, unspecified; F41.9 Anxiety disorder, unspecified; I25.119 Atherosclerotic heart disease of native coronary artery with unspecified angina pectoris; Z90.49 Acquired absence of other specified parts of digestive tract; Z87.891 Personal history of nicotine dependence; Z79.01 Long term (current) use of anticoagulants; Z79.82 Long term (current) use of aspirin; Z79.899 Other long term (current) drug therapy; Z79.02 Long term (current) use of antithrombotics/antiplatelets; Z82.49 Family history of ischemic heart disease and other diseases of the circulatory system
CPT/HCPCS: 36415; 71010; 80048; 80053; 80061; 82550; 82553; 83735; 84100; 84484; 85025; 85610; 85730; 93005; 93459; 96365; 96368; 96375; 99291

== ENCOUNTER → 2016-10-14 | Outpatient (CLI) | payer MEDICARE, BC ==
[2016-10-14 10:35] LABS: ALT 37 U/L (21-72); AST 30 U/L (17-59); Cholesterol 128 mg/dL (<200); HDL Cholesterol 58 mg/dL (40-60); Triglycerides 118 mg/dL (<150)
== END | disposition home or self-care (01) ==
LOC: LABWHC1 09:01
PROVIDERS: ATTEND Internal Medicine Cardiovascular Disease
DX: E78.5 Hyperlipidemia, unspecified (principal)
CPT/HCPCS: 36415; 80061; 84450; 84460

== ENCOUNTER 2016-12-04 22:30 | Inpatient (IN) | payer MEDICARE, BC ==
[2016-12-04 22:46] LABS: Glucose,Whole Blood 151 mg/dL (75-99)
--- NOTE | 2016-12-04 23:06 | ED ---
General Adult HPI - General Chief complaint: Weakness Stated complaint: Weakness Time Seen by Provider: 12/04/16 22:37 Source: patient, EMS Mode of arrival: EMS Limitations: no limitations - History of Present Illness Initial comments: This patient is an 86-year-old man who presents to be evaluated for the complaint that he developed shaking and was having a hard time walking to the bathroom. Patient states that he was in his usual state of health until the evening. He was sitting watching television when he felt that he was shaking. He decided to go to bed, while he was in bed he went to get up to use the bathroom and then found it very difficult to walk to the bathroom. He is not having focal weakness, but he is having generalized weakness. -: hour(s) Consistency: constant Improves with: none Worsens with: none Associated Symptoms: weakness, other (rigors) - Related Data Home Medications Medication Instructions Recorded Confirmed Nitroglycerin Sl Tabs [Nitrostat] 0.4 mg SL DIRECTED PRN 01/26/14 12/04/16 Ranitidine HCl [Zantac] 150 mg PO DAILY 01/26/14 12/04/16 Warfarin [Coumadin] 5 mg PO PC-SUPPER 01/26/14 12/04/16 ALPRAZolam [Xanax] 0.25 mg PO DIRECTED PRN 05/12/16 12/04/16 Aspirin [Adult Low Dose Aspirin EC] 81 mg PO DAILY 05/12/16 12/04/16 Escitalopram Oxalate [Lexapro] 10 mg PO DAILY 05/12/16 12/04/16 Losartan [Cozaar] 25 mg PO DAILY 05/12/16 12/04/16 Ranolazine [Ranexa] 1,000 mg PO BID 05/12/16 12/04/16 Isosorbide Mononitrate ER [Imdur] 60 mg PO DAILY 10/09/16 12/04/16 Previous Rx's Medication Instructions Recorded Atorvastatin [Lipitor] 40 mg PO HS #30 tab 10/14/14 Metoprolol Tartrate [Lopressor] 50 mg PO BID #60 tab 10/14/14 Clopidogrel [Plavix] 75 mg PO DAILY #30 tab 10/11/16 Allergies Allergy/AdvReac Type Severity Reaction Status Date / Time No Known Allergies Allergy Verified 12/04/16 22:37 Review of Systems ROS Statement: Those systems with pertinent positive or pertinent negative responses have been documented in the HPI. ROS Other: All systems not noted in ROS Statement are negative. Constitutional: Reports: chills, weakness (Generalized). Denies: fever ENT: Denies: throat pain, congestion Respiratory: Denies: cough, dyspnea Cardiovascular: Denies: chest pain, orthopnea, syncope Gastrointestinal: Denies: abdominal pain, vomiting, diarrhea Genitourinary: Denies: dysuria, hematuria Musculoskeletal: Denies: back pain Skin: Denies: rash Neurological: Reports: weakness (Generalized). Denies: headache, numbness, paresthesias Past Medical History Past Medical History: Coronary Artery Disease (CAD), Chest Pain / Angina, Eye Disorder, Hyperlipidemia, Hypertension, Myocardial Infarction (OK) Additional Past Medical History / Comment(s): Macular Degeneration, rectal bleeding Last Myocardial Infarction Date:: 1992 History of Any Multi-Drug Resistant Organisms: None Reported Past Surgical History: Cholecystectomy, Coronary Bypass/CABG, Heart Catheterization With Stent, Hernia Repair Additional Past Surgical History / Comment(s): kevin inguinal hernia, CABG 1992, 2 cardiac stents Past Anesthesia/Blood Transfusion Reactions: No Reported Reaction Date of Last Stent Placement:: 2003 Past Psychological History: Anxiety, Depression Smoking Status: Former smoker Past Alcohol Use History: Occasional Additional Past Alcohol Use History / Comment(s): quit smoking 50 yrs ago, smoked 1 PPD Past Drug Use History: None Reported - Past Family History Mother Family Medical History: No Reported History Additional Family Medical History / Comment(s): Passed at 93 Father Family Medical History: Myocardial Infarction (OK) Additional Family Medical History / Comment(s): "bad heart" General Exam Limitations: no limitations General appearance: alert, in no apparent distress Head exam: Present: atraumatic, normocephalic Eye exam: Present: normal appearance. Absent: scleral icterus, conjunctival injection ENT exam: Present: normal oropharynx Neck exam: Present: normal inspection, full ROM Respiratory exam: Present: normal lung sounds bilaterally, rales (Bilateral bases). Absent: respiratory distress, wheezes, rhonchi, stridor, accessory muscle use, decreased breath sounds, prolonged expiratory Cardiovascular Exam: Present: regular rate, normal rhythm, systolic murmur. Absent: normal heart sounds, diastolic murmur, rubs, gallop GI/Abdominal exam: Present: soft, normal bowel sounds, hernia. Absent: distended, tenderness, guarding, rebound, rigid, mass Extremities exam: Present: normal inspection, normal capillary refill. Absent: pedal edema, calf tenderness Back exam: Present: normal inspection. Absent: CVA tenderness (R), CVA tenderness (L) Neurological exam: Present: alert, oriented X3, CN II-XII intact. Absent: motor sensory deficit Skin exam: Present: warm, dry, intact, normal color. Absent: rash Course Vital Signs 12/04/16 12/04/16 12/05/16 22:33 23:36 01:29 Temperature 98.3 F 98.6 F Pulse Rate 74 74 76 Respiratory 18 18 18 Rate Blood Pressure 134/68 137/67 116/63 O2 Sat by Pulse 97 97 97 Oximetry EKG Findings - EKG Comments: EKG Findings:: The EKG is similar to the comparison from 10/09/2016 - EKG Results: EKG: interpreted by ERMD, sinus rhythm (Rate 71 bpm), normal axis - Blocks, [place], Hypertrophy, ST Abn: AV and intraventricular conduction: right bundle branch block (fixed/ intermittent, complete/incomplete), left anterior fascicular block - [place], Pacemaker, Normal: Myocardial infarction: septal OK (old age or indeterminate) Medical Decision Making - Lab Data Result diagrams: 12/04/16 22:50 12/04/16 22:50 Lab Results 12/04/16 12/04/16 12/04/16 Range/Units 22:43 22:50 22:50 WBC 3.4 L (3.8-10.6) k/uL RBC 2.65 L (4.30-5.90) m/uL Hgb 8.7 L D (13.0-17.5) gm/dL Hct 25.8 L (39.0-53.0) % MCV 97.7 D (80.0-100.0) fL MCH 32.9 (25.0-35.0) pg MCHC 33.7 (31.0-37.0) g/dL RDW 13.9 (11.5-15.5) % Plt Count 127 L (150-450) k/uL Neutrophils % (Manual) 73.0 % Lymphocytes % (Manual) 23.0 % Monocytes % (Manual) 2.0 % Eosinophils % (Manual) 2.0 % Neutrophils # (Manual) 2.5 (1.3-7.7) k/uL Lymphocytes # (Manual) 0.8 L (1.0-4.8) k/uL Monocytes # (Manual) 0.1 (0-1.0) k/uL Eosinophils # (Manual) 0.1 (0-0.7) k/uL Nucleated RBCs 0 (0-0) /100 WBC Manual Slide Review Performed PT (9.0-12.0) sec INR (<1.1) APTT (22.0-30.0) sec Sodium 142 (137-145) mmol/L Potassium 4.1 (3.5-5.1) mmol/L Chloride 103 (98-107) mmol/L Carbon Dioxide 26 (22-30) mmol/L Anion Gap 13 mmol/L BUN 24 H (9-20) mg/dL Creatinine 1.00 (0.66-1.25) mg/dL Est GFR (MDRD) Af Amer >60 (>60 ml/min/1.73 sqM) Est GFR (MDRD) Non-Af >60 (>60 ml/min/1.73 sqM) Glucose 142 H (74-99) mg/dL POC Glucose (mg/dL) 151 H (75-99) mg/dL POC Glu Clinic Receptionist ID Jackson Rice Plasma Lactic Acid Nils (0.7-2.0) mmol/L Calcium 8.5 (8.4-10.2) mg/dL Magnesium 1.9 (1.6-2.3) mg/dL Total Bilirubin 0.4 (0.2-1.3) mg/dL AST 15 L (17-59) U/L ALT 26 (21-72) U/L Alkaline Phosphatase 69 (38-126) U/L Troponin I (0.000-0.034) ng/mL NT-Pro-B Natriuret Pep pg/mL Total Protein 6.4 (6.3-8.2) g/dL Albumin 3.4 L (3.5-5.0) g/dL Urine Color Urine Appearance (Clear) Urine pH (5.0-8.0) Ur Specific [place] (1.001-1.035) Urine Protein (Negative) Urine Glucose (UA) (Negative) Urine Ketones (Negative) Urine Blood (Negative) Urine Nitrite (Negative) Urine Bilirubin (Negative) Urine Urobilinogen (<2.0) mg/dL Ur Leukocyte Esterase (Negative) Urine RBC (0-5) /hpf Hyaline Casts (0-2) /lpf Urine Mucus (None) /hpf 12/04/16 12/04/16 12/04/16 Range/Units 22:50 22:50 22:50 WBC (3.8-10.6) k/uL RBC (4.30-5.90) m/uL Hgb (13.0-17.5) gm/dL Hct (39.0-53.0) % MCV (80.0-100.0) fL MCH (25.0-35.0) pg MCHC (31.0-37.0) g/dL RDW (11.5-15.5) % Plt Count (150-450) k/uL Neutrophils % (Manual) % Lymphocytes % (Manual) % Monocytes % (Manual) % Eosinophils % (Manual) % Neutrophils # (Manual) (1.3-7.7) k/uL Lymphocytes # (Manual) (1.0-4.8) k/uL Monocytes # (Manual) (0-1.0) k/uL Eosinophils # (Manual) (0-0.7) k/uL Nucleated RBCs (0-0) /100 WBC Manual Slide Review PT 20.9 H (9.0-12.0) sec INR 2.2 (<1.1) APTT 25.9 (22.0-30.0) sec Sodium (137-145) mmol/L Potassium (3.5-5.1) mmol/L Chloride (98-107) mmol/L Carbon Dioxide (22-30) mmol/L Anion Gap mmol/L BUN (9-20) mg/dL Creatinine (0.66-1.25) mg/dL Est GFR (MDRD) Af Amer (>60 ml/min/1.73 sqM) Est GFR (MDRD) Non-Af (>60 ml/min/1.73 sqM) Glucose (74-99) mg/dL POC Glucose (mg/dL) (75-99) mg/dL POC Glu Clinic Receptionist ID Plasma Lactic Acid Nils (0.7-2.0) mmol/L Calcium (8.4-10.2) mg/dL Magnesium (1.6-2.3) mg/dL Total Bilirubin (0.2-1.3) mg/dL AST (17-59) U/L ALT (21-72) U/L Alkaline Phosphatase (38-126) U/L Troponin I <0.012 (0.000-0.034) ng/mL NT-Pro-B Natriuret Pep 735 pg/mL Total Protein (6.3-8.2) g/dL Albumin (3.5-5.0) g/dL Urine Color Urine Appearance (Clear) Urine pH (5.0-8.0) Ur Specific [place] (1.001-1.035) Urine Protein (Negative) Urine Glucose (UA) (Negative) Urine Ketones (Negative) Urine Blood (Negative) Urine Nitrite (Negative) Urine Bilirubin (Negative) Urine Urobilinogen (<2.0) mg/dL Ur Leukocyte Esterase (Negative) Urine RBC (0-5) /hpf Hyaline Casts (0-2) /lpf Urine Mucus (None) /hpf 12/04/16 12/05/16 Range/Units 22:50 00:12 WBC (3.8-10.6) k/uL RBC (4.30-5.90) m/uL Hgb (13.0-17.5) gm/dL Hct (39.0-53.0) % MCV (80.0-100.0) fL MCH (25.0-35.0) pg MCHC (31.0-37.0) g/dL RDW (11.5-15.5) % Plt Count (150-450) k/uL Neutrophils % (Manual) % Lymphocytes % (Manual) % Monocytes % (Manual) % Eosinophils % (Manual) % Neutrophils # (Manual) (1.3-7.7) k/uL Lymphocytes # (Manual) (1.0-4.8) k/uL Monocytes # (Manual) (0-1.0) k/uL Eosinophils # (Manual) (0-0.7) k/uL Nucleated RBCs (0-0) /100 WBC Manual Slide Review PT (9.0-12.0) sec INR (<1.1) APTT (22.0-30.0) sec Sodium (137-145) mmol/L Potassium (3.5-5.1) mmol/L Chloride (98-107) mmol/L Carbon Dioxide (22-30) mmol/L Anion Gap mmol/L BUN (9-20) mg/dL Creatinine (0.66-1.25) mg/dL Est GFR (MDRD) Af Amer (>60 ml/min/1.73 sqM) Est GFR (MDRD) Non-Af (>60 ml/min/1.73 sqM) Glucose (74-99) mg/dL POC Glucose (mg/dL) (75-99) mg/dL POC Glu Clinic Receptionist ID Plasma Lactic Acid Nils 2.7 H* (0.7-2.0) mmol/L Calcium (8.4-10.2) mg/dL Magnesium (1.6-2.3) mg/dL Total Bilirubin (0.2-1.3) mg/dL AST (17-59) U/L ALT (21-72) U/L Alkaline Phosphatase (38-126) U/L Troponin I (0.000-0.034) ng/mL NT-Pro-B Natriuret Pep pg/mL Total Protein (6.3-8.2) g/dL Albumin (3.5-5.0) g/dL Urine Color [place] Urine Appearance Clear (Clear) Urine pH 6.5 (5.0-8.0) Ur Specific [place] 1.022 (1.001-1.035) Urine Protein 1+ H (Negative) Urine Glucose (UA) Negative (Negative) Urine Ketones Negative (Negative) Urine Blood Negative (Negative) Urine Nitrite Negative (Negative) Urine Bilirubin 1+ H (Negative) Urine Urobilinogen 3.0 (<2.0) mg/dL Ur Leukocyte Esterase Trace H (Negative) Urine RBC 1 (0-5) /hpf Hyaline Casts 1 (0-2) /lpf Urine Mucus Rare H (None) /hpf Disposition Clinical Impression: Anemia, Lactic acidosis, Generalized weakness Disposition: ADMITTED IP TO THIS [facility] Condition: Fair
[2016-12-04 23:16] LABS: Aty Lym Flag Marked; CH 32.6; CHCM 33.6; HCT 25.8 % (39.0-53.0); HDW 3.35; MCH 32.9 pg (25.0-35.0); MCHC 33.7 g/dL (31.0-37.0); MCV 97.7 fL (80.0-100.0); MPO Flag Slight; Mean Platelet Volume 7.4; RBC 2.65 m/uL (4.30-5.90); RDW 13.9 % (11.5-15.5); WBC 3.4 k/uL (3.8-10.6); WBC (Perox) 3.44
[2016-12-04 23:19] LABS: HGB 8.7 gm/dL (13.0-17.5); INR 2.2 (<1.1); Partial Thromboplastin Time 25.9 sec (22.0-30.0); Prothrombin Time 20.9 sec (9.0-12.0)
[2016-12-04 23:20] LABS: ALT 26 U/L (21-72); AST 15 U/L (17-59); Alkaline Phosphatase 69 U/L (38-126); Anion Gap 13 mmol/L; Blood Urea Nitrogen 24 mg/dL (9-20); Calcium 8.5 mg/dL (8.4-10.2); Carbon Dioxide 26 mmol/L (22-30); Chloride 103 mmol/L (98-107); Glucose 142 mg/dL (74-99); Magnesium 1.9 mg/dL (1.6-2.3); Non-African American GFR(MDRD) >60 (>60 ml/min/1.73 sqM); Potassium 4.1 mmol/L (3.5-5.1); Sodium 142 mmol/L (137-145); Total Bilirubin 0.4 mg/dL (0.2-1.3); Total Protein 6.4 g/dL (6.3-8.2)
--- NOTE | 2016-12-04 23:38 | XR ---
EXAM: XR Chest, 2 Views. CLINICAL HISTORY: Reason: Weakness TECHNIQUE: Frontal and lateral views of the chest. COMPARISON: No relevant prior studies available. FINDINGS: Lungs: Bibasilar atelectasis. Pleural space: Unremarkable. No pneumothorax. Heart: Unremarkable. No cardiomegaly. Mediastinum: Stable postoperative mediastinum. Bones/joints: No acute osseous abnormality. Upper abdomen: Persistent elevation of the left hemidiaphragm. IMPRESSION: No acute cardiopulmonary process.
[2016-12-04 23:43] LABS: Add Differential Manual Differential
[2016-12-04 23:46] LABS: Manual Review Performed; Nucleated Red Blood Cells 0 /100 WBC (0-0); Total Cells Counted 100
[2016-12-05 00:31] LABS: Appearance,Urine Clear (Clear); Bilirubin,Urine 1+ (Negative); Glucose,Urine (UA) Negative (Negative); Ketones,Urine Negative (Negative); Leukocyte Esterase,Urine Trace (Negative); Mucus,Urine Rare /hpf; Nitrite,Urine Negative (Negative); PH, Urine 6.5 (5.0-8.0); Particle Count 2601; Protein,Urine 1+ (Negative); RBC,Urine 1 /hpf (0-5); Specific Gravity,Urine 1.022 (1.001-1.035); UA Billing (MACRO vs. MICRO) MICRO
[2016-12-05] MEDS ORDERED: ACETAMINOPHEN TAB 325 MG TAB PO PRN (00:54)
[2016-12-05] MEDS ORDERED: NALOXONE 0.4 MG/ML 1 ML VIAL IV PRN (00:54)
[2016-12-05] MEDS ORDERED: ALPRAZolam 0.25 MG TAB PO PRN (00:57)
[2016-12-05] MEDS: SODIUM CHLORIDE 0.9% 1,000 ML IV SCH (01:27)
[2016-12-05] MEDS: ASPIRIN 81 MG CHEW PO SCH (08:23)
[2016-12-05] MEDS: ESCITALOPRAM 10 MG TAB PO SCH (08:23)
[2016-12-05] MEDS: ALPRAZolam 0.25 MG TAB PO SCH ×3 (08:23→21:49)
[2016-12-05] MEDS: RANOLAZINE 500 MG TAB.ER.12H PO SCH ×2 (08:23→21:49)
[2016-12-05] MEDS: FAMOTIDINE 20 MG TAB PO SCH (08:23)
[2016-12-05] MEDS: LOSARTAN 25 MG TAB PO SCH (08:23)
[2016-12-05] MEDS ORDERED: METOPROLOL TARTRATE 50 MG TAB PO SCH (09:00)
[2016-12-05] MEDS ORDERED: ISOSORBIDE MONONITRATE ER 60 MG TAB.ER.24H PO SCH ×2 (09:00→10:00)
[2016-12-05 09:29] LABS: INR 2.2 (<1.1); Prothrombin Time 21.3 sec (9.0-12.0)
[2016-12-05] MEDS: CLOPIDOGREL 75 MG TAB PO SCH (09:38)
[2016-12-05] MEDS ORDERED: ISOSORBIDE MONONITRATE ER 60 MG TAB.ER.24H PO ONE (10:00)
[2016-12-05] MEDS: PSYLLIUM HUSK 100% 6 GM PACKET PO SCH ×3 (10:01→21:49)
[2016-12-05 10:55] LABS: Reticulocyte % 2.4 % (0.5-2.0)
[2016-12-05 11:49] LABS: Iron 13 ug/dL (49-181)
[2016-12-05 12:01] LABS: % Iron Saturation 3.8 % (20-50); Rheumatoid Factor, Qnt <9 IU/mL (<12); Total Iron Binding Capacity 346 ug/dL (261-462)
--- NOTE | 2016-12-05 12:14 | P.HPIM ---
History of Present Illness H&P Date: 12/05/16 Chief Complaint: Tremors Patient is an 86-year-old white male, patient of Dr. Macario Cast in the outpatient setting, presenting to the emergency department with complaints of uncontrollable tremors. Patient states he was having Easter dinner with his family when approximately 30 minutes later he started developing a burning sensation in his mid abdomen area. Patient states the burning was relieved with baking soda and water. Approximately 30 minutes after that, patient started having uncontrollable shakes of his extremities associated with generalized weakness. According to patient, symptoms lasted approximately one hour. In the emergency department, patient underwent a chest x-ray that was negative for any acute cardiopulmonary process. Admission lab work with evidence of leukopenia, anemia, and thrombocytopenia; elevated lactic acid; and possible urinary tract infection. Patient was given 1 dose of IV ceftriaxone and admitted to the medical floor with consult requested for hematology for pancytopenia. Upon examination, patient is lying in bed. Patient reports feeling well. Patient reports history of occasional bright red blood from rectum with history of hemorrhoids. Denies melena or hematochezia. In reviewing prior medical history, patient underwent colonoscopy with polypectomy for intermittent rectal bleeding for the last 3 years on 05/13/2016 with findings of scattered sigmoid diverticulosis and grade 2 internal hemorrhoids. No history of recent illness, fevers, nausea, vomiting, shortness of breath, chest pain, diarrhea, urinary urgency, frequency, hematuria, or dysuria. Patient denies weight loss but states he eats small amounts of food frequently. No new rashes or lesions. Past Medical History Past Medical History: Coronary Artery Disease (CAD), Chest Pain / Angina, Eye Disorder, Hyperlipidemia, Hypertension, Myocardial Infarction ([place]) Additional Past Medical History / Comment(s): Macular Degeneration, rectal bleeding Last Myocardial Infarction Date:: 1992 History of Any Multi-Drug Resistant Organisms: None Reported Past Surgical History: Cholecystectomy, Coronary Bypass/CABG, Heart Catheterization With Stent, Hernia Repair Additional Past Surgical History / Comment(s): kevin inguinal hernia, CABG 1992, 2 cardiac stents Past Anesthesia/Blood Transfusion Reactions: No Reported Reaction Date of Last Stent Placement:: 2003 Past Psychological History: Anxiety, Depression Smoking Status: Former smoker Past Alcohol Use History: Occasional Additional Past Alcohol Use History / Comment(s): quit smoking 50 yrs ago, smoked 1 PPD Past Drug Use History: None Reported - Past Family History Mother Family Medical History: No Reported History Additional Family Medical History / Comment(s): Passed at 93 Father Family Medical History: Myocardial Infarction ([place]) Additional Family Medical History / Comment(s): "bad heart" Medications and Allergies Home Medications Medication Instructions Recorded Confirmed Type Nitroglycerin Sl Tabs [Nitrostat] 0.4 mg SL Q5M PRN 01/26/14 12/05/16 History Ranitidine HCl [Zantac] 150 mg PO DAILY 01/26/14 12/05/16 History Warfarin [Coumadin] 5 mg PO PC-SUPPER 01/26/14 12/05/16 History ALPRAZolam [Xanax] 0.25 mg PO BID PRN 05/12/16 12/05/16 History Aspirin [Adult Low Dose Aspirin EC] 81 mg PO DAILY 05/12/16 12/05/16 History Escitalopram Oxalate [Lexapro] 10 mg PO DAILY 05/12/16 12/05/16 History Losartan [Cozaar] 25 mg PO DAILY 05/12/16 12/05/16 History Ranolazine [Ranexa] 1,000 mg PO BID 05/12/16 12/05/16 History Isosorbide Mononitrate [Imdur] 120 mg PO DAILY 12/05/16 12/05/16 History Metoprolol Succinate [Toprol XL] 50 mg PO DAILY 12/05/16 12/05/16 History Allergies Allergy/AdvReac Type Severity Reaction Status Date / Time No Known Allergies Allergy Verified 12/05/16 09:37 Physical Exam Vitals: Vital Signs Temp Pulse Pulse Resp BP BP BP 12/05/16 08:00 20 12/05/16 07:00 97.9 F 63 20 132/67 12/05/16 04:12 97.9 F 65 18 146/76 12/05/16 03:41 98.4 F 62 18 133/64 12/05/16 01:29 98.6 F 76 18 116/63 Pulse Ox 12/05/16 08:00 12/05/16 07:00 98 12/05/16 04:12 99 12/05/16 03:41 98 12/05/16 01:29 97 Intake and Output 12/04/16 12/05/16 12/05/16 22:59 06:59 14:59 Other: Voiding Method Toilet Urinal GENERAL: Pt awake and alert, well-appearing, well-nourished, and in no acute distress. HEAD: Atraumatic, normocephalic. EYES: Pupils equal, round, and reactive to light, extraocular movements intact, sclera anicteric, conjunctiva are normal. ENT: Oropharynx clear without exudates. Moist mucous membranes. Tongue smooth, pink, no lesions, protrudes in midline. NECK: Supple without lymphadenopathy or JVD. LUNGS: Breath sounds clear to auscultation bilaterally. No wheezes, rales, or rhonchi. HEART: Heart S1, S2, no S3 or S4. Regular rate and rhythm. No murmurs, rubs or gallops. ABDOMEN: Soft, obese, nontender, nondistended, normoactive bowel sounds. No guarding, no rebound. No masses or organomegaly appreciated. EXTREMITIES: Palpable peripheral pulses. Trace peripheral edema. No calf tenderness. NEUROLOGICAL: Pt oriented x 3. No focal evidence noted. Strength and sensation grossly intact. PSYCH: Normal mood, normal affect. SKIN: Warm, dry, intact. No rashes or lesions. Results CBC & Chem 7: 12/04/16 22:50 12/04/16 22:50 Labs: Abnormal Lab Results - Last 24 Hours (Table) 12/05/16 Range/Units 08:59 PT 21.3 H (9.0-12.0) sec Comments: EKG with evidence of sinus rhythm, right bundle branch block, left anterior fascicular block. Chest x-ray: report reviewed (Bibasilar atelectasis. No acute cardio pulmonary process.) Thrombosis Risk Factor Assmnt - DVT/VTE Prophylaxis DVT/VTE Prophylaxis: Pharmacologic Prophylaxis ordered - Choose All That Apply Each Factor Represents 1 point: Obesity (BMI >25) Other Risk Factors: Yes Each Risk Factor Represents 3 Points: Age 75 years or older Thrombosis Risk Factor Assessment Total Risk Factor Score: 4 Thrombosis Risk Factor Assessment Level: Moderate Risk Assessment and Plan Plan: Impression: 1. Leukopenia, present on admission. WBC 3.4. 2. Anemia, present on admission. Hemoglobin 8.7 on admission. Stool for occult blood positive. 3. Thrombocytopenia, present on admission. Platelets 127. 4. Elevated BUN, present on admission suspect secondary to possible dehydration but also could be from GI bleeding. 5. Elevated plasma lactic acid, present on admission, resolved. 6. Possible urinary tract infection, urine cultures pending. 7. Bilateral atelectasis. 8. Bilirubinuria, present on admission. 9. Hypoalbuminemia. Albumin 3.4 on admission. 9. Coronary artery disease with history of CABG in 1992 followed by stent placement 2. 9. History of recent non-ST elevated myocardial infarction on 10/09/2016 status post cardiac catheterization and maximal medical management. 10. Paroxysmal atrial fibrillation anticoagulated with Coumadin. INR therapeutic on admission. 11. Hypertension. 12. Hyperlipidemia. 13. History of intermittent rectal bleeding suspect secondary to grade 2 internal hemorrhoids. 14. History of sigmoid diverticulosis. 15. Macular degeneration. 16. History of depression and anxiety, stable. 17. Obesity. BMI 27.4. Plan: Consult has been requested for hematology regarding pancytopenia, recommendations pending. We'll consult GI for positive occult blood stool. Continue IV antibiotics for possible urinary tract infection and await urine culture. Home medications have been reviewed and resumed. Consult physical therapy to help with discharge planning. Continue supportive treatment and pain management. Continue GI and DVT prophylaxis. Continue incentive spirometry 10 times while awake. Repeat CBC, CMP, PT/INR in a.m. The above impression and plan have been discussed and directed by Dr. Cast. Carlton WILLSON acting as scribe for Dr. Cast.
[2016-12-05 12:42] LABS: Vitamin B12 203 pg/mL
--- NOTE | 2016-12-05 17:32 | P.CONS ---
History of Present Illness - Reason for Consult Consult date: 12/05/16 pancytopenia Requesting physician: Macario Cast - Chief Complaint shaking, unsteady - History of Present Illness Pt is a very pleasant male pt of Dr. Cast who is in good physical health overall and has been up until about 2-3 weeks ago, he started feeling more tired, muscles were weaker, couldn't quite do what he used to, then last night he started shaking, lasted about an hour, he was worried that he was going to fall as he could not even walk down the hallway in his house, he denied checking his temperature. On admit his CBC reveled pancytopenia, which is why we are seeing him in consult. Pt denies any recent illness, no new meds , appetite is good, no wt. loss, sweats or pain, he does have trouble with hemorrhoids and states they do bleed rather frequently, he takes metamucil TID for this, he denies any rectal pain, he has had a colonoscopy in the last year. 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 Review of Systems All systems: negative Constitutional: Reports as per HPI Past Medical History Past Medical History: Coronary Artery Disease (CAD), Chest Pain / Angina, Eye Disorder, Hyperlipidemia, Hypertension, Myocardial Infarction ([place]) Additional Past Medical History / Comment(s): Macular Degeneration, rectal bleeding Last Myocardial Infarction Date:: 1992 History of Any Multi-Drug Resistant Organisms: None Reported Past Surgical History: Cholecystectomy, Coronary Bypass/CABG, Heart Catheterization With Stent, Hernia Repair Additional Past Surgical History / Comment(s): kevin inguinal hernia, CABG 1992, 2 cardiac stents Past Anesthesia/Blood Transfusion Reactions: No Reported Reaction Date of Last Stent Placement:: 2003 Past Psychological History: Anxiety, Depression Smoking Status: Former smoker Past Alcohol Use History: Occasional Additional Past Alcohol Use History / Comment(s): quit smoking 50 yrs ago, smoked 1 PPD Past Drug Use History: None Reported - Past Family History Mother Family Medical History: No Reported History Additional Family Medical History / Comment(s): Passed at 93 Father Family Medical History: Myocardial Infarction ([place]) Additional Family Medical History / Comment(s): "bad heart" Medications and Allergies Home Medications Medication Instructions Recorded Confirmed Type Nitroglycerin Sl Tabs [Nitrostat] 0.4 mg SL Q5M PRN 01/26/14 12/05/16 History Ranitidine HCl [Zantac] 150 mg PO DAILY 01/26/14 12/05/16 History Warfarin [Coumadin] 5 mg PO PC-SUPPER 01/26/14 12/05/16 History ALPRAZolam [Xanax] 0.25 mg PO BID PRN 05/12/16 12/05/16 History Aspirin [Adult Low Dose Aspirin EC] 81 mg PO DAILY 05/12/16 12/05/16 History Escitalopram Oxalate [Lexapro] 10 mg PO DAILY 05/12/16 12/05/16 History Losartan [Cozaar] 25 mg PO DAILY 05/12/16 12/05/16 History Ranolazine [Ranexa] 1,000 mg PO BID 05/12/16 12/05/16 History Isosorbide Mononitrate [Imdur] 120 mg PO DAILY 12/05/16 12/05/16 History Metoprolol Succinate [Toprol XL] 50 mg PO DAILY 12/05/16 12/05/16 History Allergies Allergy/AdvReac Type Severity Reaction Status Date / Time No Known Allergies Allergy Verified 12/05/16 09:37 Physical Exam Vitals: Vital Signs Temp Pulse Pulse Resp BP BP BP 12/05/16 08:00 20 12/05/16 07:00 97.9 F 63 20 132/67 12/05/16 04:12 97.9 F 65 18 146/76 12/05/16 03:41 98.4 F 62 18 133/64 12/05/16 01:29 98.6 F 76 18 116/63 Pulse Ox 12/05/16 08:00 12/05/16 07:00 98 12/05/16 04:12 99 12/05/16 03:41 98 12/05/16 01:29 97 Intake and Output 12/04/16 12/05/16 12/05/16 22:59 06:59 14:59 Other: Voiding Method Toilet Urinal - Constitutional General appearance: cooperative, no acute distress, obese - EENT Eyes: anicteric sclerae, PERRLA, normal appearance ENT: normal oropharynx - Neck Neck: no lymphadenopathy - Respiratory Respiratory: bilateral: CTA - Cardiovascular Heart sounds: normal: S1, S2 leg Peripheral Edema: right: Trace, left: None - Gastrointestinal General gastrointestinal: no absent bowel sounds, no decreased bowel sounds, no distended, no hepatomegaly, no hyperactive bowel sounds, normal bowel sounds, no organomegaly, no rigid, no scaphoid, soft, no splenomegaly, no tenderness, no umbilical hernia, no ventral hernia - Integumentary Bruising of hands and forearms secondary to blood thinners and thin skin - Neurologic Neurologic: CNII-XII intact - Musculoskeletal Right forearm mass, not tender, hard or fixed, present 10 years or more Musculoskeletal: strength equal bilaterally - Psychiatric Psychiatric: A&O x's 3, appropriate affect, intact judgment & insight Results CBC & Chem 7: 12/04/16 22:50 12/04/16 22:50 Labs: Abnormal Lab Results - Last 24 Hours (Table) 12/05/16 12/05/16 12/05/16 Range/Units 08:59 08:59 08:59 Retic Count 2.4 H (0.5-2.0) % PT 21.3 H (9.0-12.0) sec Iron 13 L (49-181) ug/dL % Saturation 3.8 L (20-50) % Ferritin 6 L (18-464) ng/mL Chest x-ray: report reviewed Assessment and Plan (1) Pancytopenia Narrative/Plan: Multiple labs have been ordered to evaluate for nutritional deficit or possible marrow dysfunction. No transfusions needed at this time. Iron studies returned, pt has been ordered IV iron. Will follow up on lab results in AM. Status: Acute
[2016-12-05 17:44] LABS: ANA w/Reflex to Titer NEGATIVE (NEGATIVE)
[2016-12-05] MEDS: SODIUM FERRIC GLUCONAT-SUCROSE 125 MG in SODIUM CHLORIDE 0.9% 100 ML IVPB SCH (18:20)
[2016-12-05] MEDS ORDERED: WARFARIN 1 MG TAB PO SCH (18:30)
[2016-12-05] MEDS: HYDROCORTISONE SUPPOSITORY 25 MG SUPP RECTAL SCH (19:52)
--- NOTE | 2016-12-05 21:14 | CONS ---
DATE OF CONSULTATION: 12/05/2016 REASON FOR CONSULTATION: Rectal bleeding and anemia. HISTORY OF PRESENT ILLNESS: The patient is an 86-year-old pleasant white male who came into the emergency room last night complaining of tremors in the upper extremities and whole body shaking with muscle weakness that started yesterday evening. Symptoms continue to progressively get worse. He came into the emergency room and subsequently had routine labs done. He was noted to have a hemoglobin of 8.7; hence we are consulted in regards to this issue. The patient also has been complaining of intermittent rectal bleeding for the last 6 months' duration. In fact, I did a colonoscopy on him on an outpatient basis in April of 2016, and he was noted to have multiple small colon polyps that were removed. They were adenoma and small internal hemorrhoids. He was also seen in the office 2 months ago because of ongoing rectal bleeding, and I suggested he start on Metamucil 1 scoop twice daily. However, he has recurrent bleeding on and off once or twice a week. He denies any rectal pain. He usually has one bowel movement daily. Denies any abdominal pain. Reports no nausea or vomiting. The patient is already on an aspirin, Plavix and Coumadin for underlying coronary artery disease and atrial fibrillation. Since being in the hospital he had one episode of rectal bleeding this afternoon, but the last bowel movement was normal. His past medical history is significant for: 1. Hypertension. 2. Hyperlipidemia. 3. Coronary artery disease. 4. History of PA in the past. 5. Macular degeneration. PAST SURGICAL HISTORY: 1. Cholecystectomy. 2. CABG. 3. Cardiac catheterization with stent. 4. Hernia repair. Medications at home include: 1. Nitrostat. 2. Zantac. 3. Coumadin. 4. Xanax. 5. Aspirin. 6. Plavix. 7. Lexapro. 8. Ranexa. 9. Cozaar. 10. Imdur. 11. Toprol. FAMILY HISTORY: Mother at age 93. Father had PA. SOCIAL HISTORY: Chronic smoker but quit 50 years ago. No alcohol use. ALLERGIES: NONE. REVIEW OF SYSTEMS: CARDIOPULMONARY: No chest pain or shortness of breath. GENITOURINARY: No dysuria or hematuria. MUSCULOSKELETAL: Unremarkable. SKIN: Unremarkable. ENDOCRINE: Unremarkable. PSYCHIATRIC: Unremarkable. NEUROLOGY: Unremarkable. ENT/VISION: Unremarkable. CONSTITUTIONAL: No recent weight loss. No fever, chills, night sweats. On physical examination, he appears comfortable, in no apparent distress. Vital signs are stable. Blood pressure 146/76, pulse rate 65, temperature 97.9. HEENT EXAMINATION: Unremarkable. Conjunctivae pink. Sclerae anicteric. Oral cavity with no lesions. NECK: No JVD or lymph node enlargement. Chest was clear to auscultation. HEART: Regular rate and rhythm. ABDOMEN: Soft. It was nontender, nondistended. Liver and spleen are not palpable. Bowel sounds are positive. No organomegaly. EXTREMITIES: No pedal edema. SKIN: No rashes. NEURO: Alert and oriented x3. No focal deficits. LABS FROM TODAY: WBC 3.4, hemoglobin 8.7. Platelets are 127. PT 20.9. INR 2.2. BUN 24, creatinine 1. ALT, AST, T-bili and alkaline phosphatase are within normal limits. Stool occult blood was positive. IMPRESSION: 1. Mild pancytopenia, for which Hematology has been consulted. 2. Intermittent rectal bleeding for the last 6 months' duration. Colonoscopy in April of 2016 showed evidence of small internal hemorrhoids and multiple small polyps that were removed. Most likely the bleeding is from internal hemorrhoids. Lately he has been having bleeding once or twice a week, and since he started on Metamucil 1 scoop twice daily, bleeding has been gradually improving 3. Hemoccult-positive stool. RECOMMENDATIONS: 1. Agree with workup of anemia. 2. Will start him on Anusol Hc suppositories once at bedtime for the internal hemorrhoids. 3. Avoid straining and constipation. 4. Continue with fiber supplements 3 times daily. 5. If we are dealing with iron deficiency anemia, will consider further GI workup with an upper endoscopy. This plan was discussed with the patient. Will follow him closely during his hospital stay. Thank you for this consultation.
[2016-12-05] MEDS: ATORVASTATIN 40 MG TAB PO SCH (21:49)
[2016-12-06] MEDS: SODIUM CHLORIDE 0.9% 1,000 ML IV SCH (02:08)
[2016-12-06] MEDS: PSYLLIUM HUSK 100% 6 GM PACKET PO SCH ×3 (08:13→21:27)
[2016-12-06] MEDS: ALPRAZolam 0.25 MG TAB PO SCH ×3 (08:13→21:27)
[2016-12-06] MEDS: RANOLAZINE 500 MG TAB.ER.12H PO SCH ×2 (08:14→21:27)
[2016-12-06] MEDS: ESCITALOPRAM 10 MG TAB PO SCH (08:14)
[2016-12-06] MEDS: LOSARTAN 25 MG TAB PO SCH (08:14)
[2016-12-06] MEDS: ASPIRIN 81 MG CHEW PO SCH (08:14)
[2016-12-06] MEDS: FAMOTIDINE 20 MG TAB PO SCH (08:14)
[2016-12-06] MEDS: CLOPIDOGREL 75 MG TAB PO SCH (08:14)
[2016-12-06] MEDS: METOPROLOL SUCCINATE (ER) 50 MG TAB.ER.24H PO SCH (08:14)
[2016-12-06] MEDS: ISOSORBIDE MONONITRATE ER 60 MG TAB.ER.24H PO SCH (08:15)
[2016-12-06] MEDS ORDERED: CYANOCOBALAMIN 1,000 MCG/ML 1 ML VIAL IM ONE (08:36)
[2016-12-06] MEDS: HYDROCORTISONE SUPPOSITORY 25 MG SUPP RECTAL SCH (08:51)
[2016-12-06] MEDS ORDERED: cefTRIAXone 1,000 MG VIAL (IM USE) IM SCH (09:00)
[2016-12-06 09:04] LABS: Aty Lym Flag Marked; CH 32.5; CHCM 32.1; HCT 29.1 % (39.0-53.0); HDW 3.28; HGB 9.5 gm/dL (13.0-17.5); Hypochromasia Slight; MCH 33.1 pg (25.0-35.0); MCHC 32.5 g/dL (31.0-37.0); MCV 101.7 fL (80.0-100.0); MPO Flag Slight; Macrocytosis Slight; Mean Platelet Volume 7.4; RBC 2.86 m/uL (4.30-5.90); RDW 13.9 % (11.5-15.5); WBC 3.8 k/uL (3.8-10.6); WBC (Perox) 3.98
[2016-12-06 09:09] LABS: INR 2.1 (<1.1)
[2016-12-06 09:16] LABS: Add Differential Manual Differential
[2016-12-06 09:18] LABS: Nucleated Red Blood Cells 0 /100 WBC (0-0); Total Cells Counted 100
[2016-12-06 09:19] LABS: Manual Review Performed
[2016-12-06 09:33] LABS: ALT 20 U/L (21-72); AST 13 U/L (17-59); Alkaline Phosphatase 69 U/L (38-126); Anion Gap 8 mmol/L; Blood Urea Nitrogen 10 mg/dL (9-20); Calcium 8.4 mg/dL (8.4-10.2); Carbon Dioxide 25 mmol/L (22-30); Chloride 107 mmol/L (98-107); Glucose 179 mg/dL (74-99); Non-African American GFR(MDRD) >60 (>60 ml/min/1.73 sqM); Potassium 3.8 mmol/L (3.5-5.1); Sodium 140 mmol/L (137-145); Total Bilirubin 0.6 mg/dL (0.2-1.3); Total Protein 6.5 g/dL (6.3-8.2)
--- NOTE | 2016-12-06 11:46 | P.PN ---
Subjective Patient is an 86-year-old white male, patient of Dr. Macario Cast in the outpatient setting, presenting to the emergency department with complaints of uncontrollable tremors. Patient states he was having Easter dinner with his family when approximately 30 minutes later he started developing a burning sensation in his mid abdomen area. Patient states the burning was relieved with baking soda and water. Approximately 30 minutes after that, patient started having uncontrollable shakes of his extremities associated with generalized weakness. According to patient, symptoms lasted approximately one hour. In the emergency department, patient underwent a chest x-ray that was negative for any acute cardiopulmonary process. Admission lab work with evidence of leukopenia, anemia, and thrombocytopenia; elevated lactic acid; and possible urinary tract infection. Patient was given 1 dose of IV ceftriaxone and admitted to the medical floor with consult requested for hematology for pancytopenia and Dr. Castro for gastrointestinal service for anemia and positive occult stool. Patient reports history of occasional bright red blood from rectum with history of hemorrhoids. In reviewing prior medical history, patient underwent colonoscopy with polypectomy for intermittent rectal bleeding on 05/13/2016 with findings of scattered sigmoid diverticulosis and grade 2 internal hemorrhoids with multiple small colon polyps removed with pathology positive for adenoma. According to Dr. Castro's notes, patient followed up with her 2 months ago with complaints of ongoing rectal bleeding and patient was advised to start Metamucil 1 scoop twice daily. On examination, patient is lying in bed. Patient states he is feeling better. No rectal bleeding overnight. White count improved to 3.8. Hemoglobin improved to 9.5 after iron infusions ordered by hematology service. Preliminary urine culture pending. Patient remains afebrile. Hemodynamically stable. Objective - Vital Signs Vital signs: Vital Signs Temp 97.3 F L 12/06/16 07:00 Pulse 70 12/06/16 07:00 Resp 16 12/06/16 07:00 BP 132/61 12/06/16 07:00 Pulse Ox 97 12/06/16 07:00 Intake & Output 12/05/16 12/06/16 12/06/16 18:59 06:59 18:59 Intake Total 300 Output Total 575 Balance -275 Intake: Oral 300 Output: Urine 575 Other: Voiding Method Toilet Toilet Urinal Urinal # Voids 3 1 1 # Bowel Movements 1 - Exam GENERAL: Pt awake and alert, well-appearing, well-nourished, and in no acute distress. HEAD: Atraumatic, normocephalic. EYES: Pupils equal and round, sclera anicteric, conjunctiva are normal. ENT: Oropharynx clear without exudates. Moist mucous membranes. NECK: Supple without lymphadenopathy or JVD. LUNGS: Breath sounds clear to auscultation bilaterally. No wheezes, rales, or rhonchi. HEART: Heart S1, S2, no S3 or S4. Regular rate and rhythm. No murmurs, rubs or gallops. ABDOMEN: Soft, obese, nontender, nondistended, normoactive bowel sounds. No guarding, no rebound. No masses or organomegaly appreciated. EXTREMITIES: Palpable peripheral pulses. Trace peripheral edema. No calf tenderness. NEUROLOGICAL: Pt oriented x 3. No focal evidence noted. Strength and sensation grossly intact. PSYCH: Normal mood, normal affect. SKIN: Warm, dry, intact. - Labs CBC & Chem 7: 12/06/16 08:46 12/06/16 08:46 Labs: Abnormal Lab Results - Last 24 Hours (Table) 12/05/16 12/06/16 12/06/16 Range/Units 08:59 08:46 08:46 RBC 2.86 L (4.30-5.90) m/uL Hgb 9.5 L (13.0-17.5) gm/dL Hct 29.1 L (39.0-53.0) % MCV 101.7 H (80.0-100.0) fL Plt Count 124 L (150-450) k/uL Lymphocytes # (Manual) 0.6 L (1.0-4.8) k/uL PT (9.0-12.0) sec Glucose 179 H (74-99) mg/dL Iron 13 L (49-181) ug/dL % Saturation 3.8 L (20-50) % Ferritin 6 L (18-464) ng/mL AST 13 L (17-59) U/L ALT 20 L (21-72) U/L Albumin 3.4 L (3.5-5.0) g/dL 12/06/16 Range/Units 08:46 RBC (4.30-5.90) m/uL Hgb (13.0-17.5) gm/dL Hct (39.0-53.0) % MCV (80.0-100.0) fL Plt Count (150-450) k/uL Lymphocytes # (Manual) (1.0-4.8) k/uL PT 20.0 H (9.0-12.0) sec Glucose (74-99) mg/dL Iron (49-181) ug/dL % Saturation (20-50) % Ferritin (18-464) ng/mL AST (17-59) U/L ALT (21-72) U/L Albumin (3.5-5.0) g/dL Assessment and Plan Plan: Impression: 1. Leukopenia, present on admission, resolved. 2. Anemia, suspect secondary to iron deficiency secondary to GI blood loss suspect secondary to internal hemorrhoids. Stool for occult blood positive. Hemoglobin improved to 9.5 from 8.7 on admission status post iron infusion. Hematology and GI workup in progress. 3. Thrombocytopenia, present on admission. Platelets 124 from 127 yesterday. 4. Elevated BUN, present on admission suspect secondary to possible dehydration but also could be from GI bleeding, resolved. 5. Elevated plasma lactic acid, present on admission, resolved. 6. Possible urinary tract infection, urine cultures pending. 7. Bilateral atelectasis. 8. Bilirubinuria, present on admission. 9. Hypoalbuminemia. Albumin 3.4 on admission. 9. Coronary artery disease with history of CABG in 1992 followed by stent placement 2. 9. History of recent non-ST elevated myocardial infarction on 10/09/2016 status post cardiac catheterization and maximal medical management. 10. Paroxysmal atrial fibrillation anticoagulated with Coumadin. INR 2.1. 11. Hypertension. 12. Hyperlipidemia. 13. History of intermittent rectal bleeding suspect secondary to grade 2 internal hemorrhoids. 14. History of sigmoid diverticulosis. 15. Macular degeneration. 16. History of depression and anxiety, stable. 17. Obesity. BMI 27.4. Plan: Continue to monitor patient. Continue current medications. Continue to follow with gastrointestinal service and hematology service, notes and orders reviewed. Continue supportive treatment and pain management. Continue GI and DVT prophylaxis. Continue incentive spirometry 10 times while awake. Repeat CBC, BMP, PT/INR in a.m. The above impression and plan have been discussed and directed by Dr. Cast. Carlton WILLSON acting as scribe for Dr. Cast.
[2016-12-06] MEDS: SODIUM FERRIC GLUCONAT-SUCROSE 125 MG in SODIUM CHLORIDE 0.9% 100 ML IVPB SCH (17:24)
[2016-12-06] MEDS ORDERED: WARFARIN 5 MG TAB PO SCH (18:30)
[2016-12-06] MEDS: ATORVASTATIN 40 MG TAB PO SCH (21:27)
[2016-12-07] MEDS: SODIUM CHLORIDE 0.9% 1,000 ML IV SCH (01:07)
[2016-12-07 07:38] VITALS: BP 171/79; PULSE 65; RESP 14; TEMP 97.9
[2016-12-07] MEDS: PSYLLIUM HUSK 100% 6 GM PACKET PO SCH (08:38)
[2016-12-07] MEDS: LOSARTAN 25 MG TAB PO SCH (08:39)
[2016-12-07] MEDS: FAMOTIDINE 20 MG TAB PO SCH (08:39)
[2016-12-07] MEDS: ISOSORBIDE MONONITRATE ER 60 MG TAB.ER.24H PO SCH (08:39)
[2016-12-07] MEDS: HYDROCORTISONE SUPPOSITORY 25 MG SUPP RECTAL SCH (08:39)
[2016-12-07] MEDS: ALPRAZolam 0.25 MG TAB PO SCH (08:39)
[2016-12-07] MEDS: RANOLAZINE 500 MG TAB.ER.12H PO SCH (08:39)
[2016-12-07] MEDS: ESCITALOPRAM 10 MG TAB PO SCH (08:40)
[2016-12-07] MEDS: CLOPIDOGREL 75 MG TAB PO SCH (08:40)
[2016-12-07] MEDS: METOPROLOL SUCCINATE (ER) 50 MG TAB.ER.24H PO SCH (08:40)
[2016-12-07] MEDS: ASPIRIN 81 MG CHEW PO SCH (08:40)
[2016-12-07 09:07] LABS: Aty Lym Flag Marked; CH 32.1; CHCM 31.6; HGB 9.7 gm/dL (13.0-17.5); Hypochromasia Moderate; MCH 31.8 pg (25.0-35.0); MCHC 31.1 g/dL (31.0-37.0); MCV 102.2 fL (80.0-100.0); MPO Flag Slight; Macrocytosis Slight; Mean Platelet Volume 7.7; RBC 3.04 m/uL (4.30-5.90); RDW 14.4 % (11.5-15.5); WBC 3.8 k/uL (3.8-10.6); WBC (Perox) 3.94
[2016-12-07 09:13] LABS: INR 2.3 (<1.1); Prothrombin Time 21.9 sec (9.0-12.0)
[2016-12-07 09:22] LABS: Anion Gap 10 mmol/L; Blood Urea Nitrogen 9 mg/dL (9-20); Calcium 8.7 mg/dL (8.4-10.2); Carbon Dioxide 25 mmol/L (22-30); Chloride 104 mmol/L (98-107); Glucose 141 mg/dL (74-99); Non-African American GFR(MDRD) >60 (>60 ml/min/1.73 sqM); Potassium 4.1 mmol/L (3.5-5.1); Sodium 139 mmol/L (137-145)
[2016-12-07 10:37] LABS: Add Differential Manual Differential
[2016-12-07 10:38] LABS: Nucleated Red Blood Cells 0 /100 WBC (0-0); Total Cells Counted 100
[2016-12-07 10:39] LABS: Manual Review Performed
[2016-12-07 10:43] LABS: Free Kappa Lt Chain Qnt, Serum 2.19 mg/dL (0.33 - 1.94); Kappa/Lambda Light Chain Ratio 1.75 (0.26 - 1.65)
--- NOTE | 2016-12-07 10:44 | PN ---
DATE OF SERVICE: 12/07/2016 The patient is an 86-year-old pleasant white male admitted to the hospital with intermittent rectal bleeding for the last few months duration. He had a colonoscopy in April 2016 and was noted to have small polyps and internal hemorrhoids. Patient has been having some constipation issues. He has been on Metamucil 1 scoop 3 times daily. He also is on aspirin, Plavix and Coumadin. He was seen in consultation 2 days ago and was started on Anusol rectal suppositories and since then the bleeding has completely subsided. He has been having regular bowel movements daily. He reports no abdominal pain. No nausea or vomiting. On physical examination, blood pressure is 133/61, pulse rate 64, temperature 97.3. HEENT EXAMINATION: Unremarkable. Conjunctivae pink. Sclerae anicteric. Oral cavity, no lesions. NECK: No JVD or lymph node enlargement. Chest was clear to auscultation. HEART: Regular rate and rhythm. ABDOMEN: Soft. Bowel are positive. No organomegaly. EXTREMITIES: No pedal edema. SKIN: No rashes. NEURO: Alert and oriented x3. No focal deficits. Labs from yesterday WBC 3.8, hemoglobin 9.5, and platelets of 124, INR is 2.1. IMPRESSION: 1. Rectal bleeding related to bleeding from internal hemorrhoids, status post colonoscopy 6 months ago that showed internal hemorrhoids and small colon polyps, on Anusol suppositories and bleeding has subsided. 2. Mild pancytopenia for which Hematology has been consulted. 3. History of atrial fibrillation on Coumadin. 4. Coronary artery disease. RECOMMENDATIONS: 1. The patient was advised to continue with Metamucil one scoop 3 times daily. Continue Anusol HC suppositories as needed if he has any bleeding. 2. He was advised to avoid straining and constipation. 3. He will follow up in the office in 2 to 3 weeks following discharge from the hospital.
--- NOTE | 2016-12-07 11:32 | P.DS ---
Providers Date of admission: 12/05/16 00:54 Expected date of discharge: 12/07/16 Attending physician: Macario Cast Consults: 12/05/16 08:00 Consult Physician Stat Consulting Provider: Osman Negrete Consult Reason/Comments: pancytopenia Do you want consulting provider notified?: Yes 12/05/16 12:33 Consult Physician Urgent Consulting Provider: Marcia Castro Consult Reason/Comments: GI bleeding Do you want consulting provider notified?: Yes Primary care physician: Macario Cast Hospital Course: Patient is an 86-year-old white male, patient of Dr. Macario Cast in the outpatient setting, presenting to the emergency department with complaints of uncontrollable tremors. Patient states he was having Easter dinner with his family when approximately 30 minutes later he started developing a burning sensation in his mid abdomen area. Patient states the burning was relieved with baking soda and water. Approximately 30 minutes after that, patient started having uncontrollable shakes of his extremities associated with generalized weakness. According to patient, symptoms lasted approximately one hour. In the emergency department, patient underwent a chest x-ray that was negative for any acute cardiopulmonary process. Admission lab work with evidence of leukopenia, anemia, and thrombocytopenia; elevated lactic acid; and possible urinary tract infection. Patient was started on IV ceftriaxone and admitted to the medical floor with consult requested for hematology for pancytopenia and Dr. Castro for gastrointestinal service for anemia and positive occult stool. Further anemia workup revealed that patient was deficient in vitamin B12 and iron. Patient improved with IV hydration, iron supplements, and vitamin B12 replacement. Patient was also started on Anusol for internal hemorrhoids relief. Patient improved significantly during his hospital stay. Urine culture came back negative. Patient was cleared for discharge from both hematology and gastrointestinal service standpoint. Patient will follow-up for vitamin B12 supplements and iron replacement with hematology service in the outpatient setting. Patient scheduled to follow-up with gastrointestinal service in 2 weeks for possible endoscopies. Patient will also follow-up with Dr. Cast in the outpatient setting. Discharge diagnoses: 1. Leukopenia, present on admission, resolved. 2. Anemia, suspect secondary to iron deficiency secondary to GI blood loss suspect secondary to internal hemorrhoids and vitamin B12 deficiency. 3. Thrombocytopenia, present on admission, improved. 4. Elevated BUN, present on admission suspect secondary to possible dehydration but also could be from GI bleeding, resolved. 5. Elevated plasma lactic acid, present on admission, resolved. 6. Urinary tract infection ruled out. 7. Bilateral atelectasis. 8. Bilirubinuria, present on admission. 9. Hypoalbuminemia. 9. Coronary artery disease with history of CABG in 1992 followed by stent placement 2. 9. History of recent non-ST elevated myocardial infarction on 10/09/2016 status post cardiac catheterization and maximal medical management. 10. Paroxysmal atrial fibrillation anticoagulated with Coumadin. INR 2.1. 11. Hypertension. 12. Hyperlipidemia. 13. History of intermittent rectal bleeding suspect secondary to grade 2 internal hemorrhoids. 14. History of sigmoid diverticulosis. 15. Macular degeneration. 16. History of depression and anxiety, stable. 17. Obesity. BMI 27.4. The above impression and plan have been discussed and directed by Dr. Cast. Carlton WILLSON acting as scribe for Dr. Cast. Pertinent Studies: EKG; chest x-ray Patient Condition at Discharge: Good Plan - Discharge Summary New Discharge Prescriptions: Hydrocortisone Pr Cream [Proctosol-Hc 2.5%] 1 applic RECTAL BID #1 tube Discharge Medication List Nitroglycerin Sl Tabs [Nitrostat] 0.4 mg SL Q5M PRN 01/26/14 [History] Ranitidine HCl [Zantac] 150 mg PO DAILY 01/26/14 [History] Warfarin [Coumadin] 5 mg PO PC-SUPPER 01/26/14 [History] Atorvastatin [Lipitor] 40 mg PO HS #30 tab 10/14/14 [Rx] ALPRAZolam [Xanax] 0.25 mg PO BID PRN 05/12/16 [History] Aspirin [Adult Low Dose Aspirin EC] 81 mg PO DAILY 05/12/16 [History] Escitalopram Oxalate [Lexapro] 10 mg PO DAILY 05/12/16 [History] Losartan [Cozaar] 25 mg PO DAILY 05/12/16 [History] Ranolazine [Ranexa] 1,000 mg PO BID 05/12/16 [History] Clopidogrel [Plavix] 75 mg PO DAILY #30 tab 10/11/16 [Rx] Isosorbide Mononitrate [Imdur] 120 mg PO DAILY 12/05/16 [History] Metoprolol Succinate [Toprol XL] 50 mg PO DAILY 12/05/16 [History] Hydrocortisone Pr Cream [Proctosol-Hc 2.5%] 1 applic RECTAL BID #1 tube [Rx] Psyllium Husk 100% [Metamucil Packet] 6 gm PO TID packet 12/07/16 [Rx] Follow up Appointment(s)/Referral(s): Princess Cheatham NPC [Nurse Practitioner] - 12/19/16 1:15 pm Macario Cast DO [Primary Care Provider] - 1-2 days Marcia Castro MD [STAFF PHYSICIAN] - 2 Weeks (need for EGD outpt. Vitamin B12 deficiency) Patient Instructions/Handouts: Iron Rich Diet (DC), Iron Deficiency Anemia (DC) , Vitamin B12 Deficiency (GEN) Discharge Disposition: HOME SELF-CARE
--- NOTE | 2016-12-07 13:43 | P.PN ---
Subjective Principal diagnosis: Weakness, anemia Pt seen today in follow up, he is eating and drinking well, denies any CHIKIS, nausea, no recent bloody stool or BRBPR, he is not in any pain. He received parenteral iron and his 1st B12 injection without c/o. Objective - Vital Signs Vital signs: Vital Signs Temp 97.9 F 12/07/16 07:00 Pulse 65 12/07/16 07:00 Resp 14 12/07/16 07:00 BP 171/79 12/07/16 07:00 Pulse Ox 97 12/07/16 07:00 Intake & Output 12/06/16 12/07/16 12/07/16 18:59 06:59 18:59 Intake Total 100 50 Output Total 525 1650 200 Balance -425 -1650 -150 Weight 91.626 kg Intake: Intake, IV Titration 100 50 Amount Sodium Ferric Gluconat- 100 Sucrose 125 mg In Sodium Chloride 0.9% 100 ml @ 100 mls/hr IVPB DAILY@ 1800 RUBY Rx#:[id number] cefTRIAXone 1,000 mg In 50 Sodium Chloride 0.9% 50 ml @ 100 mls/hr IVPB DAILY [facility] Rx#:[id number] Output: Urine 525 1650 200 Other: Voiding Method Toilet Toilet Urinal Urinal # Voids 1 1 - Exam WD obese male sitting up in bed, NAD, respirations even and unlabored, slight swelling in the legs noted - Labs CBC & Chem 7: 12/07/16 08:39 12/07/16 08:39 Labs: Abnormal Lab Results - Last 24 Hours (Table) 12/05/16 12/05/16 12/07/16 Range/Units 08:59 08:59 08:39 RBC 3.04 L (4.30-5.90) m/uL Hgb 9.7 L (13.0-17.5) gm/dL Hct 31.0 L (39.0-53.0) % MCV 102.2 H (80.0-100.0) fL Plt Count 136 L (150-450) k/uL PT (9.0-12.0) sec Glucose (74-99) mg/dL Total Protein (PEP) 6.1 L (6.2-8.2) g/dL Albumin (PEP) 3.36 L (3.80-4.90) g/dL RBC Folate 798 H (280 - 791) ng/mL Free [place] LC, Quant 2.19 H (0.33 - 1.94) mg/dL Free [place]/Lambda Ratio 1.75 H (0.26 - 1.65) 12/07/16 12/07/16 Range/Units 08:39 08:39 RBC (4.30-5.90) m/uL Hgb (13.0-17.5) gm/dL Hct (39.0-53.0) % MCV (80.0-100.0) fL Plt Count (150-450) k/uL PT 21.9 H (9.0-12.0) sec Glucose 141 H (74-99) mg/dL Total Protein (PEP) (6.2-8.2) g/dL Albumin (PEP) (3.80-4.90) g/dL RBC Folate (280 - 791) ng/mL Free [place] LC, Quant (0.33 - 1.94) mg/dL Free [place]/Lambda Ratio (0.26 - 1.65) Assessment and Plan (1) Pancytopenia Narrative/Plan: CBC is stable, no need for any transfusions Iron deficiency and B12 deficient-parenteral iron has been given, iron studies will be checked in 30 days for evaluation. B12 1000mcg IM initiated, he will receive weekly injections x 4 then monthly WBC and plt improved. Status: Acute Plan: Additional labs reported after seeing pt this AM. There is a M-spike noted on protein electrophoresis, 0.65 mg/dL. Pt has follow up in our office sched in the next 2 weeks. I will review case with , any additional testing will be ordered and communicated with pt prior to office visit. Did speak with nursing and pt was leaving the building when I called. Will CC PCP.
== END 2016-12-07 14:06 | disposition home or self-care (01) | DRG 394 ==
LOC: EC 22:30 → 4MS4W 12-05 00:54
PROVIDERS: ADMIT Family Medicine; ATTEND Family Medicine
DX: K64.1 Second degree hemorrhoids (principal); E87.2 Acidosis; D61.818 Other pancytopenia; R82.2 Biliuria; I48.0 Paroxysmal atrial fibrillation; E88.09 Other disorders of plasma-protein metabolism, not elsewhere classified; E86.0 Dehydration; I45.2 Bifascicular block; I10 Essential (primary) hypertension; E53.8 Deficiency of other specified B group vitamins; J98.11 Atelectasis; D50.0 Iron deficiency anemia secondary to blood loss (chronic); K57.30 Diverticulosis of large intestine without perforation or abscess without bleeding; K59.00 Constipation, unspecified; R29.700 NIHSS score 0; E78.5 Hyperlipidemia, unspecified; I25.2 Old myocardial infarction; I25.10 Atherosclerotic heart disease of native coronary artery without angina pectoris; R22.9 Localized swelling, mass and lump, unspecified; M21.931 Unspecified acquired deformity of right forearm; M79.89 Other specified soft tissue disorders; F41.9 Anxiety disorder, unspecified; F32.9 Major depressive disorder, single episode, unspecified; R94.4 Abnormal results of kidney function studies; R25.1 Tremor, unspecified; M62.81 Muscle weakness (generalized); H35.30 Unspecified macular degeneration; E66.9 Obesity, unspecified; Z86.010 Personal history of colon polyps; Z87.891 Personal history of nicotine dependence; Z79.82 Long term (current) use of aspirin; Z95.1 Presence of aortocoronary bypass graft; Z95.5 Presence of coronary angioplasty implant and graft; Z79.899 Other long term (current) drug therapy; Z79.01 Long term (current) use of anticoagulants; Z82.49 Family history of ischemic heart disease and other diseases of the circulatory system; Z79.02 Long term (current) use of antithrombotics/antiplatelets; Z68.27 Body mass index [BMI] 27.0-27.9, adult; Z90.49 Acquired absence of other specified parts of digestive tract; Z87.828 Personal history of other (healed) physical injury and trauma
CPT/HCPCS: 36415; 71020; 80048; 80053; 81001; 82272; 82607; 82728; 82747; 83540; 83550; 83605; 83735; 83880; 83883; 84165; 84484; 85025; 85045; 85610; 85730; 86038; 86334; 86431; 87086; 93005; 96360; 99285

== ENCOUNTER 2017-04-30 19:28 | Emergency (ER) | payer MEDICARE, BC ==
[2017-04-30 19:32] VITALS: TEMP 98.2
[2017-04-30 20:34] LABS: Anisocytosis Slight; Aty Lym Flag Marked; CHCM 33.6; HCT 34.6 % (39.0-53.0); HDW 2.78; HGB 11.8 gm/dL (13.0-17.5); MCH 33.7 pg (25.0-35.0); MCHC 34.2 g/dL (31.0-37.0); MCV 98.4 fL (80.0-100.0); MPO Flag Slight; Macrocytosis Slight; Mean Platelet Volume 7.5; RBC 3.51 m/uL (4.30-5.90); RDW 17.8 % (11.5-15.5); WBC 4.3 k/uL (3.8-10.6)
[2017-04-30 20:39] LABS: Partial Thromboplastin Time 28.4 sec (22.0-30.0); Prothrombin Time 19.6 sec (9.0-12.0)
[2017-04-30 20:51] LABS: Anion Gap 6 mmol/L; Blood Urea Nitrogen 13 mg/dL (9-20); Calcium 8.4 mg/dL (8.4-10.2); Carbon Dioxide 26 mmol/L (22-30); Chloride 104 mmol/L (98-107); Glucose 104 mg/dL (74-99); Non-African American GFR(MDRD) >60 (>60 ml/min/1.73 sqM); Potassium 3.7 mmol/L (3.5-5.1); Sodium 136 mmol/L (137-145)
[2017-04-30 20:56] LABS: Add Differential Manual Differential
[2017-04-30 21:03] LABS: Band Neutrophils % 1 %; Manual Review Performed; Nucleated Red Blood Cells 0 /100 WBC (0-0); Total Cells Counted 100
--- NOTE | 2017-04-30 21:50 | ED ---
ENT HPI - General Chief complaint: Dental/Oral Stated complaint: Oral Bleed Time Seen by Provider: 04/30/17 19:34 Source: patient Mode of arrival: ambulatory Limitations: no limitations - History of Present Illness Initial comments: 86 yo male presenting for evaluation of "weird taste" in his mouth. States he noticed some blood coming from around his gums on the left upper side but unsure of any traumatic etiology. Was seen by a dentist recently but symptoms resolved and he hasn't followed back up. Denies fevers, chills, nausea, vomiting. - Related Data Home Medications Medication Instructions Recorded Confirmed Nitroglycerin Sl Tabs [Nitrostat] 0.4 mg SL Q5M PRN 01/26/14 04/30/17 ALPRAZolam [Xanax] 0.25 mg PO BID PRN 05/12/16 04/30/17 Aspirin [Adult Low Dose Aspirin EC] 81 mg PO DAILY 05/12/16 04/30/17 Escitalopram Oxalate [Lexapro] 10 mg PO DAILY 05/12/16 04/30/17 Losartan [Cozaar] 25 mg PO DAILY 05/12/16 04/30/17 Ranolazine [Ranexa] 1,000 mg PO BID 05/12/16 04/30/17 Isosorbide Mononitrate [Imdur] 120 mg PO HS 12/05/16 04/30/17 Metoprolol Succinate [Toprol XL] 50 mg PO DAILY 12/05/16 04/30/17 Clopidogrel [Plavix] 75 mg PO HS 04/30/17 04/30/17 Ranitidine HCl [Zantac] 75 mg PO DAILY 04/30/17 04/30/17 Warfarin [Coumadin] 5 mg PO W/SUPPER 04/30/17 04/30/17 Previous Rx's Medication Instructions Recorded Atorvastatin [Lipitor] 40 mg PO HS #30 tab 10/14/14 Allergies Allergy/AdvReac Type Severity Reaction Status Date / Time No Known Allergies Allergy Verified 04/30/17 19:47 Review of Systems ROS Statement: Those systems with pertinent positive or pertinent negative responses have been documented in the HPI. ROS Other: All systems not noted in ROS Statement are negative. Constitutional: Denies: fever, chills Eyes: Denies: eye pain, eye discharge, vision change ENT: Reports: dental pain. Denies: ear pain, throat pain Respiratory: Denies: cough, dyspnea Cardiovascular: Denies: chest pain, palpitations Endocrine: Denies: fatigue, polydipsia, polyuria Gastrointestinal: Denies: abdominal pain, nausea, vomiting Genitourinary: Denies: urgency, dysuria Musculoskeletal: Denies: back pain, arthralgia Skin: Denies: rash, lesions Neurological: Denies: headache, weakness Psychiatric: Denies: anxiety, depression Past Medical History Past Medical History: Coronary Artery Disease (CAD), Chest Pain / Angina, Eye Disorder, Hyperlipidemia, Hypertension, Myocardial Infarction (CA) Additional Past Medical History / Comment(s): Macular Degeneration, rectal bleeding Last Myocardial Infarction Date:: 1992 History of Any Multi-Drug Resistant Organisms: None Reported Past Surgical History: Cholecystectomy, Coronary Bypass/CABG, Heart Catheterization With Stent, Hernia Repair Additional Past Surgical History / Comment(s): kevin inguinal hernia, CABG 1992, 2 cardiac stents Past Anesthesia/Blood Transfusion Reactions: No Reported Reaction Date of Last Stent Placement:: 2003 Past Psychological History: Anxiety, Depression Smoking Status: Former smoker Past Alcohol Use History: None Reported Past Drug Use History: None Reported - Past Family History Mother Family Medical History: No Reported History Additional Family Medical History / Comment(s): Passed at 93 Father Family Medical History: Myocardial Infarction (CA) Additional Family Medical History / Comment(s): "bad heart" General Exam Limitations: no limitations General appearance: alert, in no apparent distress Head exam: Present: atraumatic, normocephalic, normal inspection Eye exam: Present: normal appearance, PERRL, EOMI. Absent: scleral icterus, conjunctival injection, periorbital swelling ENT exam: Present: other (bleeding from left upper gums; minimal ooze). Absent : normal exam, normal oropharynx Neck exam: Present: normal inspection. Absent: tenderness, meningismus, lymphadenopathy Respiratory exam: Present: normal lung sounds bilaterally. Absent: respiratory distress, wheezes, rales, rhonchi, stridor Cardiovascular Exam: Present: regular rate, normal rhythm, normal heart sounds. Absent: systolic murmur, diastolic murmur, rubs, gallop, clicks GI/Abdominal exam: Present: soft, normal bowel sounds. Absent: distended, tenderness, guarding, rebound, rigid Rectal exam: Present: deferred Extremities exam: Present: normal inspection, full ROM, normal capillary refill. Absent: tenderness, pedal edema, joint swelling, calf tenderness Back exam: Present: normal inspection Neurological exam: Present: alert, oriented X3, CN II-XII intact Psychiatric exam: Present: normal affect, normal mood Skin exam: Present: warm, dry, intact, normal color. Absent: rash Course Vital Signs 04/30/17 04/30/17 19:30 21:54 Temperature 98.2 F Pulse Rate 79 61 Respiratory 20 18 Rate Blood Pressure 174/78 163/78 O2 Sat by Pulse 97 94 L Oximetry Medical Decision Making - Medical Decision Making 86 yo male presenting for bleeding from his gums. PE reveals a mild oozing coming from the aforementioned areas. Labs showed a stable hemoglobin and appropriate INR. Pt applied pressure and on reevaluation had resolution of symptoms. He was informed of results and that he would be discharged with instructions to follow-up with his primary care physician as well as a dentist. He was further given return instructions. The patient acknowledged an understanding of this information and agreed with this plan of care. - Lab Data Result diagrams: 04/30/17 20:20 04/30/17 20:20 Lab Results 04/30/17 04/30/17 04/30/17 Range/Units 20:20 20:20 20:20 WBC 4.3 (3.8-10.6) k/uL RBC 3.51 L (4.30-5.90) m/uL Hgb 11.8 L (13.0-17.5) gm/dL Hct 34.6 L (39.0-53.0) % MCV 98.4 (80.0-100.0) fL MCH 33.7 (25.0-35.0) pg MCHC 34.2 (31.0-37.0) g/dL RDW 17.8 H (11.5-15.5) % Plt Count 111 L (150-450) k/uL Neutrophils % (Manual) 56 % Band Neutrophils % 1 % Lymphocytes % (Manual) 39 % Monocytes % (Manual) 1 % Eosinophils % (Manual) 2 % Basophils % (Manual) 1 % Neutrophils # (Manual) 2.40 (1.3-7.7) k/uL Lymphocytes # (Manual) 1.68 (1.0-4.8) k/uL Monocytes # (Manual) 0.04 (0-1.0) k/uL Eosinophils # (Manual) 0.09 (0-0.7) k/uL Basophils # (Manual) 0.04 (0-0.2) k/uL Nucleated RBCs 0 (0-0) /100 WBC Manual Slide Review Performed Poikilocytosis (manual Present Anisocytosis Slight Macrocytosis Slight PT 19.6 H (9.0-12.0) sec INR 2.0 H (<1.2) APTT 28.4 (22.0-30.0) sec Sodium 136 L (137-145) mmol/L Potassium 3.7 (3.5-5.1) mmol/L Chloride 104 (98-107) mmol/L Carbon Dioxide 26 (22-30) mmol/L Anion Gap 6 mmol/L BUN 13 (9-20) mg/dL Creatinine 0.80 (0.66-1.25) mg/dL Est GFR (MDRD) Af Amer >60 (>60 ml/min/1.73 sqM) Est GFR (MDRD) Non-Af >60 (>60 ml/min/1.73 sqM) Glucose 104 H (74-99) mg/dL Calcium 8.4 (8.4-10.2) mg/dL Disposition Clinical Impression: Hemorrhagic complications of dental implant placement Disposition: HOME SELF-CARE Condition: Stable Instructions: Toothache (ED) Referrals: Macario Cast DO [Primary Care Provider] - 1-2 days Time of Disposition: 21:50
[2017-04-30 21:56] VITALS: BP 163/78; PULSE 61; RESP 18
--- NOTE | 2017-05-02 03:54 | CDI ---
Dear Milan Asif DO: Please do addendum History of Present Illness, Physical Examination, and Medical Decision Making. Thank you, Carly Segal, [employer]. If you have any questions, please contact Cert Occupational Therapy Asst at [phone]. [facility]
== END 2017-04-30 22:04 | disposition home or self-care (01) ==
LOC: EC 19:28
DX: M27.61 Osseointegration failure of dental implant (principal); I10 Essential (primary) hypertension; I25.10 Atherosclerotic heart disease of native coronary artery without angina pectoris; F32.9 Major depressive disorder, single episode, unspecified; F41.9 Anxiety disorder, unspecified; I25.2 Old myocardial infarction; Z87.891 Personal history of nicotine dependence; Z79.01 Long term (current) use of anticoagulants; Z79.02 Long term (current) use of antithrombotics/antiplatelets; Z79.82 Long term (current) use of aspirin; Z79.899 Other long term (current) drug therapy; Z86.79 Personal history of other diseases of the circulatory system
CPT/HCPCS: 36415; 80048; 85025; 85610; 85730; 99283